=== PATIENT | female | born 1955 | race Caucasian/White ===

== ENCOUNTER → 2018-06-15 18:24 | Outpatient (CLI) | payer OTHER, SELFPAY ==
--- NOTE | 2018-06-15 18:29 | DI.RAD.S_ITS ---
PROCEDURE: XR WRIST LT MIN 3V INDICATIONS: fall on outstretched hand 3 days ago TECHNIQUE: 4 views of the wrist were acquired. COMPARISON: None. FINDINGS: Bones: No fractures or dislocations. No suspicious bony lesions. Scaphoid view: The scaphoid is intact. Soft tissues: No suspicious soft tissue calcifications. IMPRESSION: No acute radiographic findings. If pain persists, repeat study in 5-7 days is recommended to exclude occult fracture. Dictated by: Fabby Bolanos M.D. on 06/15/2018 at 18:56 Approved by: Fabby Bolanos M.D. on 06/15/2018 at 18:56
--- NOTE | 2018-06-15 18:29 | DI.RAD.S_ITS ---
PROCEDURE: XR FOREARM RT 2V INDICATIONS: fall on outstretched hand 3 days ago TECHNIQUE: 2 views of the forearm were acquired. COMPARISON: [facility], CR, XR WRIST LT MIN 3V, 06/15/2018, 18:08. FINDINGS: Bones: No fractures or dislocations. No suspicious bony lesions. Soft tissues: No suspicious soft tissue calcifications or masses. IMPRESSION: No acute radiographic findings. If pain persists, repeat study in 5-7 days is recommended to exclude occult fracture. Dictated by: Fabby Bolanos M.D. on 06/15/2018 at 18:55 Approved by: Fabby Bloanos M.D. on 06/15/2018 at 18:55
== END ==
PROVIDERS: Visit Provider Physician Assistant
DX: M79.602 Pain in left arm (principal)
CPT/HCPCS: 73090; 73110

== ENCOUNTER → 2018-06-22 12:07 | Outpatient (CLI) | payer OTHER, SELFPAY ==
--- NOTE | 2018-06-22 | DI.RAD.S_ITS ---
PROCEDURE: XR FOREARM RT 2V INDICATIONS: LEFT WRIST/FOREARM/ELBOW PAIN TECHNIQUE: 2 views of the forearm were acquired. COMPARISON: [facility], CR, XR FOREARM LT 2V, 06/15/2018, 18:08. FINDINGS: Bones: No fractures or dislocations. No suspicious bony lesions. Soft tissues: No suspicious soft tissue calcifications or masses. IMPRESSION: Unremarkable radiographic examination of left forearm. Dictated by: Song Pandey M.D. on 06/22/2018 at 12:43 Approved by: Song Pandey M.D. on 06/22/2018 at 12:45
--- NOTE | 2018-06-22 | DI.RAD.S_ITS ---
PROCEDURE: XR WRIST LT MIN 3V INDICATIONS: LEFT WRIST/FOREARM/ELBOW PAIN TECHNIQUE: 4 views of the left wrist were acquired. COMPARISON: [facility], [place], XR WRIST LT MIN 3V, 06/15/2018, 18:08. FINDINGS: Bones: No fractures or dislocations. No suspicious bony lesions. Scaphoid view: Scaphoid is intact. Soft tissues: No suspicious soft tissue calcifications. IMPRESSION: Unremarkable radiographic examination of left wrist. No significant changes from previous study. Dictated by: Song Pandey M.D. on 06/22/2018 12:42 Approved by: Song Pandey M.D. on 06/22/2018 at 12:43
== END ==
PROVIDERS: Visit Provider Physician Assistant
DX: M79.632 Pain in left forearm (principal); M25.532 Pain in left wrist; M25.522 Pain in left elbow
CPT/HCPCS: 73090; 73110

== ENCOUNTER 2020-07-31 13:56 | Observation (INO) | payer OTHER, SELFPAY ==
[2020-07-31 13:57] VITALS: BP 94/53; PULSE 55; RESP 18; TEMP 36.4; O2SAT 99
--- NOTE | 2020-07-31 13:59 | DI.RAD.S_ITS ---
PROCEDURE: XR RIBS RT MIN 3V W CXR 1V INDICATIONS: fall, pain post. right chest. TECHNIQUE: 2 views of the right ribs were acquired, along with a single view chest. COMPARISON: None. FINDINGS: Surgical changes and devices: None. Bones and chest wall: Subacute appearing fractures involving right lateral 5th, 6, 7th and 8th ribs are seen with callus formation at fracture site. No suspicious bony lesions. Overlying soft tissues appear unremarkable. Lungs and pleura: No pleural effusions or pneumothorax. Ill-defined opacity in periphery of right mid to lower lung field is seen suggestive of right lung contusion. Mediastinum: Mediastinal contours appear normal. Heart size is normal. IMPRESSION: Subacute appearing right posterior lateral 5th through 8th rib fractures with adjacent right lung lower lung lobe contusion. No pneumothorax. No pleural effusion. Dictated by: Song Pandey M.D. on 07/31/2020 at 15:52 Approved by: Song Pandey M.D. on 07/31/2020 at 16:01
[2020-07-31] MEDS: ONDANSETRON 4 MG ODT SL (14:24)
[2020-07-31] MEDS: ACETAMINOPHEN 325 MG TABLET PO (14:25)
[2020-07-31] MEDS: LIDOCAINE PATCH 1 EACH ADH..PATCH TOP (14:25)
[2020-07-31] MEDS: OXYCODONE/ACETAMINOPHEN 5/325 TABLET 1 TAB PO (14:25)
--- NOTE | 2020-07-31 14:28 | DI.CT.S_ITS ---
PROCEDURE: CT CERVICAL SPINE WO CON INDICATIONS: tripped and fell back wards, snapped back c spine TECHNIQUE: Noncontrast 3 mm thick sections acquired from the skull base to the T4 level. Sagittal and coronal reformats were then constructed. For radiation dose reduction, the following was used: automated exposure control, adjustment of mA and/or kV according to patient size. COMPARISON: None. FINDINGS: Image quality: Excellent. Bones: No fractures or dislocations. Visualized superior ribs are intact. Straightening of the usual cervical lordosis , likely degenerative, with otherwise normal alignment. Multilevel degenerative changes are present from C2-C3 through C6-C7. Soft tissues: Prevertebral soft tissues are normal in thickness. No paravertebral hematomas. No apical pneumothoraces. IMPRESSION: No CT evidence of acute traumatic cervical spine injury. Approved by: Bienvenido Jimenez M.D. on 07/31/2020 at 14:52
--- NOTE | 2020-07-31 15:04 | ED_ITS ---
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 Patient reports she was standing from a stationary stool and took a step backwards and accidentally tripped on a shoes/tangled on the other leg and lost footing. She struck to right-side of back on a wall and felt his neck snapped backwards. Patient denies losing consciousness, or taking anticoagulant, nausea or vomiting, tingling/numbness to upper extremities, headache, or vision change. Patient reports severe 8/10 pain in right-side of back and lateral thoracic region. Patient denies chest pain, short of breath but has difficult time taking a deep breath due to pain. Patient reports difficulty moving right arm due to pain on the right-sided back and lateral chest. Patient reports she is nauseated from the pain. Patient denies other injuries and denies pain in her hips, knees, ankle or foot. Related Data Home Medications Medication Instructions Recorded Confirmed bupropion HCl 300 mg PO DAILY 07/31/20 07/31/20 buspirone 15 mg PO BID 07/31/20 07/31/20 levothyroxine 150 mcg PO DAILY 07/31/20 07/31/20 multivitamin 1 tab PO DAILY 07/31/20 07/31/20 sertraline 150 mg PO DAILY 07/31/20 07/31/20 sumatriptan succinate [Imitrex] 100 mg PO Q2-4H PRN 07/31/20 07/31/20 Previous Rx's Medication Instructions Recorded docusate sodium 100 mg PO BID #60 cap 08/01/20 oxycodone 10 mg PO Q6H PRN #30 tab 08/01/20 Allergies Allergy/AdvReac Type Severity Reaction Status Date / Time No Known Drug Allergies Allergy Verified 07/31/20 13:59 Review of Systems <TRINO Abbott Last Filed: 07/31/20 23:17> Review of Systems Narrative: General: Denies fever, chills, fatigue, malaise, sweats. HEENT: Denies sinus pain, ear pain, sore throat, difficulty swallowing, dizziness. Respiratory: Denies dyspnea, cough, wheezing, hemoptysis, sputum, (+) hurts to take deep breaths.. Cardiovascular: Denies chest pain, palpitations, orthopnea, edema. Gastrointestinal: Denies (+) nausea, vomiting, abdominal pain, diarrhea, constipation, melena. : Denies dysuria, frequency, incontinence, hematuria, urinary retention. Musculoskeletal: See HPI Skin: Denies rash, skin lesions, or other. Neurologic: Denies weakness, headache, numbness, change in speech, confusion, seizures, incoordination. Psychiatric: No concerning psychosocial issues. 12-point review of systems is negative except for those stated above. Patient History <TRINO Abbott - Last Filed: 07/31/20 23:17> Medical History (Updated 08/01/20 @ 04:20 by Farhana Rogers RN) Anxiety (Acute) Breast cancer (Acute) Depression (Acute) Hypothyroidism (Acute) Sleep apnea (Acute) Surgical History History of laminectomy (Acute) Social History household members: spouse Smoking Status: Never smoker alcohol intake: current Smoking Status: Never smoker alcohol intake frequency: 0-2 drinks per day Substance Use Type: does not use Exam <TRINO Abbott - Last Filed: 07/31/20 23:17> Narrative Exam Narrative: GEN: Alert, oriented x 3, well appearing and nourished, and in moderate distress from pain. Prefers to remaining on left recumbent position due to pain on right side of ribs and back. Head: Normal cephalic, atraumatic. No scalp or temporal tenderness, palpable mass or rash. EYES: Pupils are equal, round, and reactive to light and accommodation. Extraocular muscles are intact bilaterally. There is no subconjunctival hemorrhage, exudate and sclera non-icteric. ENT: Hearing grossly intact. Nose without bleeding, purulent discharge or deviation. Mucous membrane moist, no mucosal lesion. Throat without erythema, tonsillar hypertrophy or exudate. Uvula in midline, airway patent. Neck: Trachea in midline. No JVD, non-tender without lymphadenopathy. No masses or thyroid megaly. Supple, no mid cervical tenderness to palpate or step-offs and no meningeal signs. CARDIAC: Normal regular rate and rhythm without murmurs, gallops, or rubs. No chest wall tenderness. No peripheral edema, cyanosis or pallor. Capillary refill is less than 2 seconds. RESPIRATORY: Lungs are clear to auscultate bilaterally but decreased on right- sided lobes. No cough, wheezes, rales, or rhonchi. No stridor, respiratory distress, increase work of breathing, or accessary muscle used. ABD: Abdomen soft, nontender and non-distended. No guarding or rebound tenderness to palpate. Bowel sounds are normal in all 4 quadrants. There is no palpable masses or organomegaly. EXT: Full painless ROM of all extremities with no loss of sensation, strength, effusion or edema. SKIN: Warm, dry, normal color for patient. No erythema, lesions or rash over visible areas. BACK: Exquisite tenderness to palpate in right-sided back and lateral ribs without deformity or crepitance. No flank tenderness. NEUROLOGICAL: Alert and oriented to place, time and person. Sensation and motor function intact bilaterally. No facial droops, dysphasia. PSYCHIATRIC: Good judgement and reason, without hallucinations, abnormal affect or abnormal behaviors during the examination. Patient is not suicidal. Initial Vital Signs Initial Vital Signs: Vital Signs Temperature 97.6 F 07/31/20 13:57 Pulse Rate 55 L 07/31/20 13:57 Respiratory Rate 18 07/31/20 13:57 Blood Pressure 94/53 L 07/31/20 13:57 Pulse Oximetry 99 07/31/20 13:57 <Paula Smith MD - Last Filed: 08/01/20 18:32> Initial Vital Signs Initial Vital Signs: Vital Signs Temperature 97.6 F 07/31/20 13:57 Pulse Rate 55 L 07/31/20 13:57 Respiratory Rate 18 07/31/20 13:57 Blood Pressure 94/53 L 07/31/20 13:57 Pulse Oximetry 99 07/31/20 13:57 Scores <TRINO Abbott - Last Filed: 07/31/20 23:17> GCS [place] coma scale eye opening: Spontaneous [place] coma scale verbal response: Orientated [place] coma scale motor response: Obey commands [place] coma scale total score: 15 Course <Rocky TonyTRINO Yanes - Last Filed: 07/31/20 23:17> Orders Ordered: Discontinued Medications Acetaminophen (Tylenol) 325 mg PO NOW ONE Stop: 07/31/20 14:07 Last Admin: 07/31/20 14:25 Dose: 325 mg Documented by: LAZARO Acetaminophen (Tylenol) 650 mg PO Q6HR PRN PRN Reason: Fever/Mild Pain (1-3) Bupropion HCl (Wellbutrin Xl) 300 mg PO DAILY [facility] Last Admin: 08/01/20 09:28 Dose: 300 mg Documented by: JOSE Buspirone HCl (Buspar) 15 mg PO BID [facility] Last Admin: 08/01/20 09:33 Dose: 15 mg Documented by: JOSE Docusate Sodium (Colace) 100 mg PO BID [facility] Last Admin: 08/01/20 09:28 Dose: 100 mg Documented by: JOSE Enoxaparin Sodium (Lovenox) 40 mg SUBCUT DAILY [facility] Last Admin: 08/01/20 09:28 Dose: 40 mg Documented by: JOSE Sodium Chloride (Normal Saline 0.9%) 1,000 mls @ 150 mls/hr IV CONT [facility] Last Infusion: 07/31/20 19:23 Dose: 0 mls/hr Documented by: Admin: 07/31/20 17:16 Dose: 150 mls/hr Documented by: LAZARO Ketorolac Tromethamine (Toradol) 15 mg IV Q6H PRN PRN Reason: Pain, Moderate (4-6) Stop: 08/05/20 18:56 Last Admin: 08/01/20 10:49 Dose: 15 mg Documented by: Admin: 08/01/20 04:25 Dose: 15 mg Documented by: STEVE Levothyroxine Sodium (Synthroid) 150 mcg PO 0600 [facility] Last Admin: 08/01/20 05:37 Dose: 150 mcg Documented by: STEVE Lidocaine (Lidoderm) 1 each TOP NOW ONE Stop: 07/31/20 14:07 Last Admin: 07/31/20 14:25 Dose: 1 each Documented by: LAZARO Lidocaine (Lidoderm) 1 each TOP DAILY [facility] Last Admin: 08/01/20 09:29 Dose: 1 each Documented by: JOSE Morphine Sulfate (Morphine) 2 mg IV Q5MIN PRN PRN Reason: Chest Pain Last Admin: 07/31/20 17:16 Dose: 2 mg Documented by: LAZARO Morphine Sulfate (Morphine) 4 mg IV NOW ONE Stop: 07/31/20 18:39 Last Admin: 07/31/20 18:43 Dose: 4 mg Documented by: LAZARO Morphine Sulfate (Morphine) 4 mg IV Q4HR PRN PRN Reason: Breakthrough Pain Last Admin: 07/31/20 20:00 Dose: 4 mg Documented by: KAYLEY Multivitamins (Tab-A-Zoë) 1 tab PO DAILY [facility] Last Admin: 08/01/20 09:29 Dose: 1 tab Documented by: JOSE Ondansetron HCl (Zofran Odt) 4 mg SL NOW ONE Stop: 07/31/20 14:06 Last Admin: 07/31/20 14:24 Dose: 4 mg Documented by: LAZARO Ondansetron HCl (Zofran) 4 mg IV Q4HR PRN PRN Reason: Nausea And Vomiting Oxycodone HCl (Percolone) 5 mg PO Q4HR PRN PRN Reason: Pain, Moderate (4-6) Oxycodone HCl (Percolone) 10 mg PO Q4HR PRN PRN Reason: Pain, Severe (7-10) Last Admin: 08/01/20 09:35 Dose: 10 mg Documented by: Admin: 08/01/20 00:45 Dose: 10 mg Documented by: Admin: 07/31/20 20:35 Dose: 10 mg Documented by: KAYLEY Oxycodone/Acetaminophen (Percocet 5/325) 1 tab PO NOW ONE Stop: 07/31/20 14:06 Last Admin: 07/31/20 14:25 Dose: 1 tab Documented by: LAZARO Sertraline HCl (Zoloft) 150 mg PO DAILY [facility] Last Admin: 08/01/20 09:29 Dose: 150 mg Documented by: JOSE Sodium Chloride (Normal Saline 0.9% Flush) 10 ml IV BID [facility] Last Admin: 08/01/20 09:32 Dose: 10 ml Documented by: JOSE Sodium Chloride (Normal Saline 0.9% Flush) 10 ml IV PRN PRN PRN Reason: Flush Sumatriptan Succinate (Imitrex) 100 mg PO Q2H PRN PRN Reason: Migraine Headache Reevaluation(s) Reevaluation #1: Reports pain moderate improved and she is able to resting so in supine position. Waiting for imaging tests. Time: 15:04 Vital Signs Vital signs: Vital Signs - 8 hr 07/31/20 16:14 Pulse Rate 56 L Respiratory Rate 14 Blood Pressure 127/64 Pulse Oximetry 98 <Paula Smith MD - Last Filed: 08/01/20 18:32> Orders Ordered: Discontinued Medications Acetaminophen (Tylenol) 325 mg PO NOW ONE Stop: 07/31/20 14:07 Last Admin: 07/31/20 14:25 Dose: 325 mg Documented by: LAZARO Acetaminophen (Tylenol) 650 mg PO Q6HR PRN PRN Reason: Fever/Mild Pain (1-3) Bupropion HCl (Wellbutrin Xl) 300 mg PO DAILY [facility] Last Admin: 08/01/20 09:28 Dose: 300 mg Documented by: JOSE Buspirone HCl (Buspar) 15 mg PO BID [facility] Last Admin: 08/01/20 09:33 Dose: 15 mg Documented by: JOSE Docusate Sodium (Colace) 100 mg PO BID [facility] Last Admin: 08/01/20 09:28 Dose: 100 mg Documented by: JOSE Enoxaparin Sodium (Lovenox) 40 mg SUBCUT DAILY [facility] Last Admin: 08/01/20 09:28 Dose: 40 mg Documented by: JOSE Sodium Chloride (Normal Saline 0.9%) 1,000 mls @ 150 mls/hr IV CONT [facility] Last Infusion: 07/31/20 19:23 Dose: 0 mls/hr Documented by: Admin: 07/31/20 17:16 Dose: 150 mls/hr Documented by: LAZARO Ketorolac Tromethamine (Toradol) 15 mg IV Q6H PRN PRN Reason: Pain, Moderate (4-6) Stop: 08/05/20 18:56 Last Admin: 08/01/20 10:49 Dose: 15 mg Documented by: Admin: 08/01/20 04:25 Dose: 15 mg Documented by: STEVE Levothyroxine Sodium (Synthroid) 150 mcg PO 0600 [facility] Last Admin: 08/01/20 05:37 Dose: 150 mcg Documented by: STEVE Lidocaine (Lidoderm) 1 each TOP NOW ONE Stop: 07/31/20 14:07 Last Admin: 07/31/20 14:25 Dose: 1 each Documented by: LAZARO Lidocaine (Lidoderm) 1 each TOP DAILY [facility] Last Admin: 08/01/20 09:29 Dose: 1 each Documented by: JOSE Morphine Sulfate (Morphine) 2 mg IV Q5MIN PRN PRN Reason: Chest Pain Last Admin: 07/31/20 17:16 Dose: 2 mg Documented by: LAZARO Morphine Sulfate (Morphine) 4 mg IV NOW ONE Stop: 07/31/20 18:39 Last Admin: 07/31/20 18:43 Dose: 4 mg Documented by: LAZARO Morphine Sulfate (Morphine) 4 mg IV Q4HR PRN PRN Reason: Breakthrough Pain Last Admin: 07/31/20 20:00 Dose: 4 mg Documented by: KAYLEY Multivitamins (Tab-A-Zoë) 1 tab PO DAILY [facility] Last Admin: 08/01/20 09:29 Dose: 1 tab Documented by: JOSE Ondansetron HCl (Zofran Odt) 4 mg SL NOW ONE Stop: 07/31/20 14:06 Last Admin: 07/31/20 14:24 Dose: 4 mg Documented by: LAZARO Ondansetron HCl (Zofran) 4 mg IV Q4HR PRN PRN Reason: Nausea And Vomiting Oxycodone HCl (Percolone) 5 mg PO Q4HR PRN PRN Reason: Pain, Moderate (4-6) Oxycodone HCl (Percolone) 10 mg PO Q4HR PRN PRN Reason: Pain, Severe (7-10) Last Admin: 08/01/20 09:35 Dose: 10 mg Documented by: Admin: 08/01/20 00:45 Dose: 10 mg Documented by: Admin: 07/31/20 20:35 Dose: 10 mg Documented by: KAYLEY Oxycodone/Acetaminophen (Percocet 5/325) 1 tab PO NOW ONE Stop: 07/31/20 14:06 Last Admin: 07/31/20 14:25 Dose: 1 tab Documented by: LAZARO Sertraline HCl (Zoloft) 150 mg PO DAILY [facility] Last Admin: 08/01/20 09:29 Dose: 150 mg Documented by: JOSE Sodium Chloride (Normal Saline 0.9% Flush) 10 ml IV BID [facility] Last Admin: 08/01/20 09:32 Dose: 10 ml Documented by: JOSE Sodium Chloride (Normal Saline 0.9% Flush) 10 ml IV PRN PRN PRN Reason: Flush Sumatriptan Succinate (Imitrex) 100 mg PO Q2H PRN PRN Reason: Migraine Headache Vital Signs Vital signs: Vital Signs - 8 hr 07/31/20 16:14 Pulse Rate 56 L Respiratory Rate 14 Blood Pressure 127/64 Pulse Oximetry 98 MDM - Fall <Rocky [facility] - Last Filed: 07/31/20 23:17> Differential Diagnosis Differential diagnosis: Likely other (C-spine strain, C-spine fracture, rib fracture, rib contusion) Medical Records Attestation: I reviewed the patient's medical records. Lab Data Attestation: I reviewed the patient's lab results. Result diagrams: 07/31/20 17:11 07/31/20 17:11 Labs: Lab Results 07/31/20 07/31/20 07/31/20 Range/Units 17:11 17:11 17:11 WBC 12.2 H (4.5-11.0) X10^3/uL RBC 4.07 (4.0-5.2) X10^6/uL Hgb 12.5 (12.0-16.0) g/dL Hct 38.0 (36-46) % MCV 93.2 (80-100) fL MCH 30.7 (26-34) PG MCHC 33.0 (30-36) % RDW 12.7 (11.6-14.8) % Plt Count 283 (150-400) X10^3/uL Neut % (Auto) 82.1 H (50-75) % Lymph % (Auto) 12.0 L (25-40) % [place] % (Auto) 5.2 (3-14) % Eos % (Auto) 0.5 L (2-4) % Baso % (Auto) 0.2 (0-2) % Neut # (Auto) 60737 H (1864-4300) /uL Lymph # (Auto) 1500 (3789-1145) /uL [place] # (Auto) 600 (0-900) /uL Eos # (Auto) 100 (0-450) /uL Baso # (Auto) 0 (0-100) /uL PT 11.5 (10.1-12.7) SECONDS INR 1.0 (0.9-1.3) Sodium 139 (137-145) mmol/L Potassium 4.1 (3.4-5.1) mmol/L Chloride 100 (98-107) mmol/L Carbon Dioxide 31 (22-32) mmol/L BUN 14 (7-17) mg/dL Creatinine 0.74 (0.52-1.04) mg/dL Estimated GFR > 60.0 (>60) mL/min BUN/Creatinine Ratio 18.9 (6-22) Glucose 94 (80-110) mg/dL Calcium 9.2 (8.4-10.2) mg/dL Total Bilirubin 0.6 (0.2-1.3) mg/dL AST 38 H (14-36) IU/L ALT 26 (<35) IU/L Alkaline Phosphatase 130 H (38-126) U/L Total Protein 7.8 (6.3-8.2) g/dL Albumin 4.3 (3.5-5.0) g/dL Globulin 3.5 (1.7-4.1) g/dL Albumin/Globulin Ratio 1.2 (1.0-2.8) COVID-19 PCR (Negative) 07/31/20 Range/Units 18:47 WBC (4.5-11.0) X10^3/uL RBC (4.0-5.2) X10^6/uL Hgb (12.0-16.0) g/dL Hct (36-46) % MCV (80-100) fL MCH (26-34) PG MCHC (30-36) % RDW (11.6-14.8) % Plt Count (150-400) X10^3/uL Neut % (Auto) (50-75) % Lymph % (Auto) (25-40) % [place] % (Auto) (3-14) % Eos % (Auto) (2-4) % Baso % (Auto) (0-2) % Neut # (Auto) (5404-1185) /uL Lymph # (Auto) (9436-4880) /uL [place] # (Auto) (0-900) /uL Eos # (Auto) (0-450) /uL Baso # (Auto) (0-100) /uL PT (10.1-12.7) SECONDS INR (0.9-1.3) Sodium (137-145) mmol/L Potassium (3.4-5.1) mmol/L Chloride (98-107) mmol/L Carbon Dioxide (22-32) mmol/L BUN (7-17) mg/dL Creatinine (0.52-1.04) mg/dL Estimated GFR (>60) mL/min BUN/Creatinine Ratio (6-22) Glucose (80-110) mg/dL Calcium (8.4-10.2) mg/dL Total Bilirubin (0.2-1.3) mg/dL AST (14-36) IU/L ALT (<35) IU/L Alkaline Phosphatase (38-126) U/L Total Protein (6.3-8.2) g/dL Albumin (3.5-5.0) g/dL Globulin (1.7-4.1) g/dL Albumin/Globulin Ratio (1.0-2.8) COVID-19 PCR Negative (Negative) Imaging Data XR-Rib/chest: Radiologist's Impression: [address] [address] XRay Report Signed Patient: Mirella Starr#: [id number] : 4Acct:[id number] Age/Sex: 64 / FDate of Service: 07/31/20 Loc: ED Accession Number: [id number] Procedure: XR ribs RT min 3V w CXR1V Ordering Provider: Paula Smith MD PROCEDURE: XR RIBS RT MIN 3V W CXR 1V INDICATIONS: fall, pain post. right chest. TECHNIQUE: 2 views of the right ribs were acquired, along with a single view chest. COMPARISON: None. FINDINGS: Surgical changes and devices: None. Bones and chest wall: Subacute appearing fractures involving right lateral 5th, 6, 7th and 8th ribs are seen with callus formation at fracture site. No suspicious bony lesions. Overlying soft tissues appear unremarkable. Lungs and pleura: No pleural effusions or pneumothorax. Ill-defined opacity in periphery of right mid to lower lung field is seen suggestive of right lung contusion. Mediastinum: Mediastinal contours appear normal. Heart size is normal. IMPRESSION: Subacute appearing right posterior lateral 5th through 8th rib fractures with adjacent right lung lower lung lobe contusion. No pneumothorax. No pleural effusion. Dictated by: Song Pandey M.D. on 07/31/2020 at 15:52 Approved by: Song Pandey M.D. on 07/31/2020 at 16:01 CT-C spine: Radiologist's Impression: [place] [address] CT Scan Report Signed Patient: Mirella Starr#: [id number] : 1955cct:[id number] Age/Sex: 64 / FDate of Service: 07/31/20 Loc: ED Accession Number: [id number] Procedure: CT cervical spine wo con Ordering Provider: Rocky Tiwari PROCEDURE: CT CERVICAL SPINE WO CON INDICATIONS: tripped and fell back wards, snapped back c spine TECHNIQUE: Noncontrast 3 mm thick sections acquired from the skull base to the T4 level. Sagittal and coronal reformats were then constructed. For radiation dose reduction, the following was used: automated exposure control, adjustment of mA and/or kV according to patient size. COMPARISON: None. FINDINGS: Image quality: Excellent. Bones: No fractures or dislocations. Visualized superior ribs are intact. Straightening of the usual cervical lordosis , likely degenerative, with otherwise normal alignment. Multilevel degenerative changes are present from C2-C3 through C6- C7. Soft tissues: Prevertebral soft tissues are normal in thickness. No paravertebral hematomas. No apical pneumothoraces. IMPRESSION: No CT evidence of acute traumatic cervical spine injury. Approved by: Bienvenido Jimenez M.D. on 07/31/2020 at 14:52 CT-Chest: Radiologist's Impression: [address] [address] [address] Scan Report Signed Patient: Aron Starr#: [id number] : 1955cct:[id number] Age/Sex: 64 / FDate of Service: 07/31/20 Loc: ED Accession Number: [id number] Procedure: CT chest w con Ordering Provider: Rocky Tiwari PROCEDURE: CT CHEST W CON INDICATIONS: chest trauma, rib fractures per xray TECHNIQUE: After the administration of intravenous contrast, 5 mm thick sections acquired from the pulmonary apices to the posterior costophrenic angles. 1 mm axial lung, 5 mm thick coronal and sagittal reformats and 7 mm axial MIP were acquired. For radiation dose reduction, the following was used: automated exposure control, adjustment of mA and/or kV according to patient size. COMPARISON: [facility], CR, XR RIBS RT MIN 3V W CXR 1V, 07/31/2020, 14:37. FINDINGS: Image quality: Excellent. Lungs and pleura: No acute air space opacities. No pleural effusions or pneumothorax. Central and peripheral airways are patent and normal in caliber. There is left mastectomy. Mediastinum: Heart size is normal. No pericardial effusion. No mediastinal or hilar adenopathy by size criteria. Thoracic aorta and central pulmonary arteries are normal in size. Esophagus is normal in caliber. No hiatal hernia. Bones and chest wall: There are multiple non-acute healing right rib fractures involving the lateral aspect of the right 4th, 5th, 6th and 7th ribs. No suspicious bony lesions. No vertebral body compression fractures. No axillary or supraclavicular adenopathy by size criteria. Thyroid gland is small but otherwise unremarkable. Abdomen: There are multiple gallstones. Visualized upper abdominal solid organs appear normal. Upper abdominal bowel loops are normal in caliber. IMPRESSION: 1. Nonacute healing right 4th, 5th, 6th and 7th rib fractures. 2. No hemothorax or pneumothorax. 3. Left mastectomy. 4. Cholelithiasis. Dictated by: Margarita Yeager M.D. on 07/31/2020 at 18:06 Approved by: Margarita Yeager M.D. 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 No focal neurological deficit appreciated. Patient reports her neck left backwards during the fall. No loss of consciousness from this. Patient is not currently on anticoagulant. C-spine CT test was negative for acute findings but multilevel degenerative changes in C2-C3 through C6-C7. Rib xray shows multiple rib fracture involving right lateral ribs and concerns for right lung contution in adjacent area. Patient was not able to take deep breaths due to discomfort. No increased work of breathing with O2 said averaging 96% in room air. Lung sounds are decreased in right-side to auscultate. Patient was medicated with lidocaine patch, PO analgesics initially with some relief but soon after this was not effective. It required IV medication to manage pain with morphine. CT chest was added for further testing with concerns for multiple rib fracture and chest contusion. EKG with sinus bradycardia rate at [address] CT showed multiple right rib fracture involving the lateral aspect of 4th through 7th ribs. There is no vertebral body compression fracture appreciated. There is no pericardial effusion, pneumothorax or hemothorax. Incidental finding of multiple gallstones. I/S teaching requested to prevent atelectasis or pneumonia. CBC with mild leukocytosis with slight elevation in neutrophil of 82.1%. Chemistry test with very mildly elevated AST of 38 with alkaline phos of 130. Normal coag test. Negative Covid test. Discussed study findings and physical exam and concerns with patient and she verbalized understanding with the treatment plan of admission for pain management and further monitoring. 184-Dr Ocampo consulted for admission for observation for pain management and monitor for chest contusion and decompensation and she kindly accepted the patient's care. <Paula Smith MD - Last Filed: 08/01/20 18:32> Lab Data Labs: Lab Results 07/31/20 07/31/20 07/31/20 Range/Units 17:11 17:11 17:11 WBC 12.2 H (4.5-11.0) X10^3/uL RBC 4.07 (4.0-5.2) X10^6/uL Hgb 12.5 (12.0-16.0) g/dL Hct 38.0 (36-46) % MCV 93.2 (80-100) fL MCH 30.7 (26-34) PG MCHC 33.0 (30-36) % RDW 12.7 (11.6-14.8) % Plt Count 283 (150-400) X10^3/uL Neut % (Auto) 82.1 H (50-75) % Lymph % (Auto) 12.0 L (25-40) % [place] % (Auto) 5.2 (3-14) % Eos % (Auto) 0.5 L (2-4) % Baso % (Auto) 0.2 (0-2) % Neut # (Auto) 72680 H (7502-6660) /uL Lymph # (Auto) 1500 (4334-5347) /uL [place] # (Auto) 600 (0-900) /uL Eos # (Auto) 100 (0-450) /uL Baso # (Auto) 0 (0-100) /uL PT 11.5 (10.1-12.7) SECONDS INR 1.0 (0.9-1.3) Sodium 139 (137-145) mmol/L Potassium 4.1 (3.4-5.1) mmol/L Chloride 100 (98-107) mmol/L Carbon Dioxide 31 (22-32) mmol/L BUN 14 (7-17) mg/dL Creatinine 0.74 (0.52-1.04) mg/dL Estimated GFR > 60.0 (>60) mL/min BUN/Creatinine Ratio 18.9 (6-22) Glucose 94 (80-110) mg/dL Calcium 9.2 (8.4-10.2) mg/dL Total Bilirubin 0.6 (0.2-1.3) mg/dL AST 38 H (14-36) IU/L ALT 26 (<35) IU/L Alkaline Phosphatase 130 H (38-126) U/L Total Protein 7.8 (6.3-8.2) g/dL Albumin 4.3 (3.5-5.0) g/dL Globulin 3.5 (1.7-4.1) g/dL Albumin/Globulin Ratio 1.2 (1.0-2.8) COVID-19 PCR (Negative) 07/31/20 Range/Units 18:47 WBC (4.5-11.0) X10^3/uL RBC (4.0-5.2) X10^6/uL Hgb (12.0-16.0) g/dL Hct (36-46) % MCV (80-100) fL MCH (26-34) PG MCHC (30-36) % RDW (11.6-14.8) % Plt Count (150-400) X10^3/uL Neut % (Auto) (50-75) % Lymph % (Auto) (25-40) % [place] % (Auto) (3-14) % Eos % (Auto) (2-4) % Baso % (Auto) (0-2) % Neut # (Auto) (7427-4008) /uL Lymph # (Auto) (8494-1770) /uL [place] # (Auto) (0-900) /uL Eos # (Auto) (0-450) /uL Baso # (Auto) (0-100) /uL PT (10.1-12.7) SECONDS INR (0.9-1.3) Sodium (137-145) mmol/L Potassium (3.4-5.1) mmol/L Chloride (98-107) mmol/L Carbon Dioxide (22-32) mmol/L BUN (7-17) mg/dL Creatinine (0.52-1.04) mg/dL Estimated GFR (>60) mL/min BUN/Creatinine Ratio (6-22) Glucose (80-110) mg/dL Calcium (8.4-10.2) mg/dL Total Bilirubin (0.2-1.3) mg/dL AST (14-36) IU/L ALT (<35) IU/L Alkaline Phosphatase (38-126) U/L Total Protein (6.3-8.2) g/dL Albumin (3.5-5.0) g/dL Globulin (1.7-4.1) g/dL Albumin/Globulin Ratio (1.0-2.8) COVID-19 PCR Negative (Negative) Discharge Plan Departure Patient Disposition: Admitted as Observation Clinical Impression: Closed rib fracture Qualifiers: Encounter type: initial encounter Rib fracture type: multiple ribs Laterality: right Qualified Code(s): S22.41XA - Multiple fractures of ribs, right side, initial encounter for closed fracture Fall Qualifiers: Encounter type: initial encounter Qualified Code(s): W19.XXXA - Unspecified fall, initial encounter Discharge Date/Time: 07/31/20 19:20 Instructions: DI for Rib Fracture, DI for Prescription Opioid Use Referrals: Valentino Lawrence, SCOTT [Emergency Nurse] - Lisa Ricketts MD [Physician] - 1 Week (PLEASE CALL DR. RICKETTS'S OFFICE TO SCHEDULE A FOLLOW UP APPOINTMENT TO BE SEEN IN 1 WK, IF YOU ARE UNABLE TO FOLLOW UP WITH YOUR PRIMARY CARE DOCTOR.) Admit Date/Time: 07/31/20 18:50 Admit Provider: Lisa Ricketts <Paula Smith MD - Last Filed: 08/01/20 18:32> Cosign ED Attending Cosignature Attestation: I was immediately available in the department for consultation throughout this patient's visit. I agree with documentation as above. Paula Smith MD
[2020-07-31 16:14] VITALS: BP 127/64; PULSE 56; RESP 14; O2SAT 98
[2020-07-31] MEDS: MORPHINE 2 MG/ML INJ IV (17:16)
[2020-07-31] MEDS: SODIUM CHLORIDE 0.9% 1,000 ML 150 ML IV (17:16)
[2020-07-31 17:18] LABS: Add Manual Diff / Slide Review NO; Basophils Absolute Auto 0 /uL (0-100); Basophils Percent Auto 0.2 % (0-2); Eosinophils Absolute Auto 100 /uL (0-450); Eosinophils Percent Auto 0.5 % (2-4); Hemoglobin 12.5 g/dL (12.0-16.0); Lymphocytes Absolute Auto 1500 /uL (1100-4500); Mean Corpuscular Hemoglobin 30.7 PG (26-34); Mean Corpuscular Volume 93.2 fL (80-100); Monocytes Absolute Auto 600 /uL (0-900); Monocytes Percent Auto 5.2 % (3-14); Neutrophils Absolute Auto 10000 /uL (1500-7000); Neutrophils Percent Auto 82.1 % (50-75); Platelet Count 283 X10^3/uL (150-400); Red Blood Cell Count 4.07 X10^6/uL (4.0-5.2); Red Cell Distribution Width 12.7 % (11.6-14.8); White Blood Cell Count 12.2 X10^3/uL (4.5-11.0)
[2020-07-31 17:25] LABS: Prothrombin Time 11.5 SECONDS (10.1-12.7)
--- NOTE | 2020-07-31 17:26 | DI.CT.S_ITS ---
PROCEDURE: CT CHEST W CON INDICATIONS: chest trauma, rib fractures per xray TECHNIQUE: After the administration of intravenous contrast, 5 mm thick sections acquired from the pulmonary apices to the posterior costophrenic angles. 1 mm axial lung, 5 mm thick coronal and sagittal reformats and 7 mm axial MIP were acquired. For radiation dose reduction, the following was used: automated exposure control, adjustment of mA and/or kV according to patient size. COMPARISON: [facility], CR, XR RIBS RT MIN 3V W CXR 1V, 07/31/2020, 14:37. FINDINGS: Image quality: Excellent. Lungs and pleura: No acute air space opacities. No pleural effusions or pneumothorax. Central and peripheral airways are patent and normal in caliber. There is left mastectomy. Mediastinum: Heart size is normal. No pericardial effusion. No mediastinal or hilar adenopathy by size criteria. Thoracic aorta and central pulmonary arteries are normal in size. Esophagus is normal in caliber. No hiatal hernia. Bones and chest wall: There are multiple non-acute healing right rib fractures involving the lateral aspect of the right 4th, 5th, 6th and 7th ribs. No suspicious bony lesions. No vertebral body compression fractures. No axillary or supraclavicular adenopathy by size criteria. Thyroid gland is small but otherwise unremarkable. Abdomen: There are multiple gallstones. Visualized upper abdominal solid organs appear normal. Upper abdominal bowel loops are normal in caliber. IMPRESSION: 1. Nonacute healing right 4th, 5th, 6th and 7th rib fractures. 2. No hemothorax or pneumothorax. 3. Left mastectomy. 4. Cholelithiasis. Dictated by: Margarita Yeager M.D. on 07/31/2020 at 18:06 Approved by: Margarita Yeager M.D. on 07/31/2020 at 18:15
[2020-07-31 17:30] LABS: Alanine Aminotransferase 26 IU/L (<35); Albumin 4.3 g/dL (3.5-5.0); Albumin Globulin Ratio 1.2 (1.0-2.8); Alkaline Phosphatase 130 U/L (38-126); Aspartate Aminotransferase 38 IU/L (14-36); BUN Creatinine Ratio 18.9 (6-22); Bilirubin Total 0.6 mg/dL (0.2-1.3); Blood Urea Nitrogen 14 mg/dL (7-17); Calcium 9.2 mg/dL (8.4-10.2); Carbon Dioxide 31 mmol/L (22-32); Chloride 100 mmol/L (98-107); Estimated Glomerular Filt Rate > 60.0 mL/min (>60); Globulin 3.5 g/dL (1.7-4.1); Glucose 94 mg/dL (80-110); HEMOLYSIS 19 (0-50); Potassium 4.1 mmol/L (3.4-5.1); Sodium 139 mmol/L (137-145); Total Protein 7.8 g/dL (6.3-8.2)
[2020-07-31] MEDS: MORPHINE 4 MG/ML INJ IV ×2 (18:43→20:00)
--- NOTE | 2020-07-31 19:00 | P.HP_ITS ---
History of Present Illness History of Present Illness Date Patient Seen: 07/31/20 Time Patient Seen: 19:30 Chief complaint: GLF Narrative: This is a 64 yo woman with history of hypothyroid, multiple laminectomy surgeries, anxiety, depression, and breast cancer. She came into the ER this evening after a mechanical fall at work (she works at [employer]). She was standing up from a stationary stool and took a step backwards and caught her foot and lost her footing. She struck to right-side of her back on a wall and felt her neck snap backwards. She fell to the ground and landed on her buttocks. She denies hitting her head, losing consciousness, any ti ngling/numbness to upper extremities, headache, or vision change. She reports severe 8/10 pain in right-side of her back and lateral thoracic region. She is nauseated from the pain. She denies other injuries, pain in her hips, knees, ankles or feet. She reports some pain in her bottom. She had a CT scan of her chest and neck in the ER. The neck CT revealed no injury. The chest CT and CXR showed four right sided rib fractures and a pulmonary contusion. In the ER the patient was having difficulty taking a deep breath, and pain was not manageable on PO pain meds. Therefore surgery was consulted to admit her for pain management and respiratory care for her rib fractures. ROS: General: Denies fever, chills, fatigue, malaise, sweats. HEENT: Denies sinus pain, ear pain, sore throat, difficulty swallowing, dizziness. Respiratory: Denies dyspnea, cough, wheezing, hemoptysis, sputum, (+) hurts to take deep breaths.. Cardiovascular: Denies chest pain, palpitations, orthopnea, edema. Gastrointestinal: Denies (+) nausea, vomiting, abdominal pain, diarrhea, constipation, melena. : Denies dysuria, frequency, incontinence, hematuria, urinary retention. Musculoskeletal: See HPI Skin: Denies rash, skin lesions, or other. Neurologic: Denies weakness, headache, numbness, change in speech, confusion, seizures, incoordination. Psychiatric: No concerning psychosocial issues. 12-point review of systems is negative except for those stated above. PE: GENERAL: Well groomed and cooperative. Appears stated age. Answers questions promptly and appropriately. Vital signs noted. HENT: Normocephalic, atraumatic. Hearing intact. Oral mucosa is pink and moist. Neck: No TTP over spinous processes; FROM in all directions without pain EYES: Conjunctiva pink, sclera white, no periorbital swelling. CARDIOVASCULAR: Regular rate. No pedal edema. RESPIRATORY: Non-tachypneic, CTAB, equal breath sounds bilaterally; no wheezes; rales, ronchi GASTROINTESTINAL: Abdomen soft and non-distended Back: exquisitely TTP on the right posterior lateral mid to upper back; no visible ecchymoses; no crepitus MUSCULOSKELETAL: Equal tone and mass bilaterally. SKIN: Warm, dry, soft, appropriate color for ethnicity. No other lesions, rashes, or wounds. NEURO: Alert and Oriented X 3. Cranial nerves grossly intact; no gross sensory deficits, or cognitive issues. PSYCH: Appropriate mood and affect, normal intellect Patient History Medical History Anxiety (Acute) Breast cancer (Acute) Depression (Acute) Hypothyroidism (Acute) Surgical History History of laminectomy (Acute) Family & Social History Safety & Behavioral: Feels Safe in Current Yes Environment Been Physically Hurt or No Threatened By a Person Tobacco & Substance use: Smoking Status Never smoker alcohol intake frequency 0-2 drinks per day Substance Use Type does not use Meds Home Medications and Allergies Home Medications Medication Instructions Recorded Confirmed Type bupropion HCl 300 mg PO DAILY 07/31/20 07/31/20 History buspirone 15 mg PO BID 07/31/20 07/31/20 History levothyroxine 150 mcg PO DAILY 07/31/20 07/31/20 History multivitamin 1 tab PO DAILY 07/31/20 07/31/20 History sertraline 150 mg PO DAILY 07/31/20 07/31/20 History sumatriptan succinate [Imitrex] 100 mg PO Q2-4H PRN 07/31/20 07/31/20 History Allergies Allergy/AdvReac Type Severity Reaction Status Date / Time No Known Drug Allergies Allergy Verified 07/31/20 13:59 Exam Vital Signs (past 8 hours): - 07/31/20 13:57 07/31/20 16:14 Temperature 97.6 F Pulse Rate 55 L 56 L Respiratory Rate 18 14 Blood Pressure 94/53 L 127/64 Pulse Oximetry 99 98 Oxygen Delivery Method Room Air Objective Imaging CT scan - chest: Radiologist's impression: [address] [address] XRay Report Signed Patient: Aron Starr#: [id number] : 4Acct:[id number] Age/Sex: 64 / FDate of Service: 07/31/20 Loc: ED Accession Number: [id number] Procedure: XR ribs RT min 3V w CXR1V Ordering Provider: Paula Smith MD PROCEDURE: XR RIBS RT MIN 3V W CXR 1V INDICATIONS: fall, pain post. right chest. TECHNIQUE: 2 views of the right ribs were acquired, along with a single view chest. COMPARISON: None. FINDINGS: Surgical changes and devices: None. Bones and chest wall: Subacute appearing fractures involving right lateral 5th, 6, 7th and 8th ribs are seen with callus formation at fracture site. No suspicious bony lesions. Overlying soft tissues appear unremarkable. Lungs and pleura: No pleural effusions or pneumothorax. Ill-defined opacity in periphery of right mid to lower lung field is seen suggestive of right lung cont usion. Mediastinum: Mediastinal contours appear normal. Heart size is normal. IMPRESSION: Subacute appearing right posterior lateral 5th through 8th rib fractures with adjacent right lung lower lung lobe contusion. No pneumothorax. No pleural effusion. Dictated by: Song Pandey M.D. on 07/31/2020 at 15:52 Approved by: Song Pandey M.D. on 07/31/2020 at 16:[address] [address] [address] Scan Report Signed Patient: Aron Starr#: [id number] : 4Acct:[id number] Age/Sex: 64 / FDate of Service: 07/31/20 Loc: ED Accession Number: [id number] Procedure: CT chest w con Ordering Provider: Rocky Tiwari PROCEDURE: CT CHEST W CON INDICATIONS: chest trauma, rib fractures per xray TECHNIQUE: After the administration of intravenous contrast, 5 mm thick sections acquired from the pulmonary apices to the posterior costophrenic angles. 1 mm axial lung, 5 mm thick coronal and sagittal reformats and 7 mm axial MIP were acquired. For radiation dose reduction, the following was used: automated exposure control, adjustment of mA and/or kV according to patient size. COMPARISON: [facility], CR, XR RIBS RT MIN 3V W CXR 1V, 07/31/2020, 14:37. FINDINGS: Image quality: Excellent. Lungs and pleura: No acute air space opacities. No pleural effusions or pneumothorax. Central and peripheral airways are patent and normal in caliber. There is left mastectomy. Mediastinum: Heart size is normal. No pericardial effusion. No mediastinal or hilar adenopathy by size criteria. Thoracic aorta and central pulmonary arteries are normal in size. Esophagus is normal in caliber. No hiatal hernia. Bones and chest wall: There are multiple non-acute healing right rib fractures involving the lateral aspect of the right 4th, 5th, 6th and 7th ribs. No suspicious bony lesions. No vertebral body compression fractures. No axillary or supraclavicular adenopathy by size criteria. Thyroid gland is small but otherwise unremarkable. Abdomen: There are multiple gallstones. Visualized upper abdominal solid organs appear normal. Upper abdominal bowel loops are normal in caliber. IMPRESSION: 1. Nonacute healing right 4th, 5th, 6th and 7th rib fractures. 2. No hemothorax or pneumothorax. 3. Left mastectomy. 4. Cholelithiasis. Dictated by: Margarita Yeager M.D. on 07/31/2020 at 18:06 Approved by: Margarita Yeager M.D. on 07/31/2020 at 18:15 [place] [address] CT Scan Report Signed Patient: Aron Starr#: [id number] : 4Acct:[id number] Age/Sex: 64 / FDate of Service: 07/31/20 Loc: ED Accession Number: [id number] Procedure: CT cervical spine wo con Ordering Provider: Rocky Tiwari PROCEDURE: CT CERVICAL SPINE WO CON INDICATIONS: tripped and fell back wards, snapped back c spine TECHNIQUE: Noncontrast 3 mm thick sections acquired from the skull base to the T4 level. Sagittal and coronal reformats were then constructed. For radiation dose reduction, the following was used: automated exposure control, adjustment of mA and/or kV according to patient size. COMPARISON: None. FINDINGS: Image quality: Excellent. Bones: No fractures or dislocations. Visualized superior ribs are intact. Straightening of the usual cervical lordosis , likely degenerative, with otherwise normal alignment. Multilevel degenerative changes are present from C2-C3 through C6- C7. Soft tissues: Prevertebral soft tissues are normal in thickness. No paraverte bral hematomas. No apical pneumothoraces. IMPRESSION: No CT evidence of acute traumatic cervical spine injury. Approved by: Bienvenido Jimenez M.D. on 07/31/2020 at 14:52 Labs Result Diagrams: 07/31/20 17:11 07/31/20 17:11 Labs: Laboratory Results - last 24 hr 07/31/20 07/31/20 07/31/20 17:11 17:11 17:11 WBC 12.2 H RBC 4.07 Hgb 12.5 Hct 38.0 MCV 93.2 MCH 30.7 MCHC 33.0 RDW 12.7 Plt Count 283 Neut % (Auto) 82.1 H Lymph % (Auto) 12.0 L [place] % (Auto) 5.2 Eos % (Auto) 0.5 L Baso % (Auto) 0.2 Neut # (Auto) [address] H Lymph # (Auto) 1500 [place] # (Auto) 600 Eos # (Auto) 100 Baso # (Auto) 0 PT 11.5 INR 1.0 Sodium 139 Potassium 4.1 Chloride 100 Carbon Dioxide 31 BUN 14 Creatinine 0.74 Estimated GFR > 60.0 BUN/Creatinine Ratio 18.9 Glucose 94 Calcium 9.2 Total Bilirubin 0.6 AST 38 H ALT 26 Alkaline Phosphatase 130 H Total Protein 7.8 Albumin 4.3 Globulin 3.5 Albumin/Globulin Ratio 1.2 Assessment & Plan Assessment and plan (1) Closed rib fracture: Problem details: This is a 64 yo woman s/p GLF with multiple right sided rib fractures, pulmonary contusion, difficulty deep breathing, and pain not controlled with PO pain meds. She is admitted for pain control, and monitoring for decompensation. Plan: Admit to surgery for management of rib fractures IS O2 as needed monitor O2 sats Ambulate as tolerated PO diet as tolerated pain med anti emetic Qualifiers: Encounter type: initial encounter Laterality: right Rib fracture type: multiple ribs Qualified Code(s): S22.41XA - Multiple fractures of ribs, right side, initial encounter for closed fracture Status: Acute (2) Fall: Qualifiers: Encounter type: initial encounter Qualified Code(s): W19.XXXA - Unspecified fall, initial encounter Status: Acute (3) Painful respiration: Status: Acute (4) Right pulmonary contusion: Status: Acute (5) Fall from ground level: Status: Acute Quality VTE Deep Vein Thrombosis/Pulmonary Embolism Present on Admission: No
[2020-07-31 19:30] VITALS: BP 100/64; PULSE 60; RESP 17; TEMP 37; O2SAT 97
[2020-07-31 19:33] LABS: COVID19 -Nasal RAPID Negative (Negative)
[2020-07-31] MEDS: OXYCODONE IR 10 MG TABLET PO (20:35)
[2020-07-31 20:40] VITALS: BMI 28.5
[2020-08-01] VITALS: BP 113/58; PULSE 60; RESP 16; TEMP 36.4
[2020-08-01] MEDS: OXYCODONE IR 10 MG TABLET PO ×2 (00:45→09:35)
[2020-08-01 04:13] VITALS: O2SAT 94
[2020-08-01] MEDS: KETOROLAC 15 MG/ML VIAL IV ×2 (04:25→10:49)
[2020-08-01 04:28] VITALS: BP 101/56; PULSE 63; RESP 16; TEMP 36.4
[2020-08-01] MEDS: LEVOTHYROXINE 150 MCG TABLET PO (05:37)
[2020-08-01 07:50] VITALS: BP 100/58; PULSE 57; RESP 14; TEMP 36.5; O2SAT 92
--- NOTE | 2020-08-01 08:47 | P.DS_ITS ---
History of Present Illness History of Present Illness Chief complaint: GLF Narrative: This is a 64 yo woman with history of hypothyroid, multiple laminectomy surgeries, anxiety, depression, and breast cancer. 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 She was standing up from a stationary stool and took a step backwards and caught her foot and lost her footing. She struck to right-side of her back on a wall and felt her neck snap backwards. She fell to the ground and landed on her buttocks. She denies hitting her head, losing consciousness, any tin gling/numbness to upper extremities, headache, or vision change. She reports severe 8/10 pain in right-side of her back and lateral thoracic region. She is nauseated from the pain. She denies other injuries, pain in her hips, knees, ankles or feet. She reports some pain in her bottom. She had a CT scan of her chest and neck in the ER. The neck CT revealed no injury. The chest CT and CXR showed four right sided rib fractures and a pulmonary contusion. In the ER the patient was having difficulty taking a deep breath, and pain was not manageable on PO pain meds. Therefore surgery was consulted to admit her for pain management and respiratory care for her rib fractures. ROS: General: Denies fever, chills, fatigue, malaise, sweats. HEENT: Denies sinus pain, ear pain, sore throat, difficulty swallowing, dizziness. Respiratory: Denies dyspnea, cough, wheezing, hemoptysis, sputum, (+) hurts to take deep breaths.. Cardiovascular: Denies chest pain, palpitations, orthopnea, edema. Gastrointestinal: Denies (+) nausea, vomiting, abdominal pain, diarrhea, constipation, melena. : Denies dysuria, frequency, incontinence, hematuria, urinary retention. Musculoskeletal: See HPI Skin: Denies rash, skin lesions, or other. Neurologic: Denies weakness, headache, numbness, change in speech, confusion, seizures, incoordination. Psychiatric: No concerning psychosocial issues. 12-point review of systems is negative except for those stated above. PE: GENERAL: Well groomed and cooperative. Appears stated age. Answers questions promptly and appropriately. Vital signs noted. HENT: Normocephalic, atraumatic. Hearing intact. Oral mucosa is pink and moist. Neck: No TTP over spinous processes; FROM in all directions without pain EYES: Conjunctiva pink, sclera white, no periorbital swelling. CARDIOVASCULAR: Regular rate. No pedal edema. RESPIRATORY: Non-tachypneic, CTAB, equal breath sounds bilaterally; no wheezes; rales, ronchi GASTROINTESTINAL: Abdomen soft and non-distended Back: exquisitely TTP on the right posterior lateral mid to upper back; no visible ecchymoses; no crepitus MUSCULOSKELETAL: Equal tone and mass bilaterally. SKIN: Warm, dry, soft, appropriate color for ethnicity. No other lesions, rashes, or wounds. NEURO: Alert and Oriented X 3. Cranial nerves grossly intact; no gross sensory deficits, or cognitive issues. PSYCH: Appropriate mood and affect, normal intellect Discharge Providers Provider Date of admission: 07/31/20 18:50 Discharge Date: 08/01/20 Discharge provider: Lisa Ricketts MD Summary Hospital Course Discharge Diagnosis: multiple rib fractures, pulmonary contusion Hospital Course: The patient was admitted for pain control and monitoring for respiratory decompensation. Her pain was eventually managed with PO and IV pain med, and converted to PO only pain med at the time of discharge. She maintained her oxygen saturation, and was discharged home with incentive spirometer, Rx for oxycodone 10mg, recommendation for lidocaine patch, tylenol and ibuprofen, and strict return precuations. Status at Discharge Cognitive/behavioral status at discharge: oriented Functional status at discharge: independent ambulation Overall status at discharge: patient is progressing back to baseline Time Spent with Patient Time spent: Greater than 30 minutes Exam Vital Signs (past 8 hours): - 08/01/20 04:13 08/01/20 04:28 08/01/20 07:50 Temperature 97.6 F 97.7 F Pulse Rate 63 57 L Respiratory Rate 16 14 Blood Pressure 101/56 L 100/58 L Pulse Oximetry 94 92 Oxygen Delivery Method Room Air Oxygen Flow Rate 0 Narrative Exam Narrative: GENERAL: Well groomed and cooperative. Appears stated age. Answers questions promptly and appropriately. Vital signs noted. HENT: Normocephalic, atraumatic. Hearing intact. Oral mucosa is pink and moist. Neck: No TTP over spinous processes; FROM in all directions without pain EYES: Conjunctiva pink, sclera white, no periorbital swelling. CARDIOVASCULAR: Regular rate. No pedal edema. RESPIRATORY: Non-tachypneic, CTAB, equal breath sounds bilaterally; no wheezes; rales, ronchi GASTROINTESTINAL: Abdomen soft and non-distended Back: exquisitely TTP on the right posterior lateral mid to upper back; no visible ecchymoses; no crepitus MUSCULOSKELETAL: Equal tone and mass bilaterally. SKIN: Warm, dry, soft, appropriate color for ethnicity. No other lesions, rashes, or wounds. NEURO: Alert and Oriented X 3. Cranial nerves grossly intact; no gross sensory deficits, or cognitive issues. PSYCH: Appropriate mood and affect, normal intellect Objective Imaging CT scan - chest: Radiologist's impression: CT scan - chest: Radiologist's impression: [address] [address] XRay Report Signed Patient: Aron Starr#: [id number] : 4Acct:[id number] Age/Sex: 64 / FDate of Service: 07/31/20 Loc: ED Accession Number: [id number] Procedure: XR ribs RT min 3V w CXR1V Ordering Provider: Paula Smith MD PROCEDURE: XR RIBS RT MIN 3V W CXR 1V INDICATIONS: fall, pain post. right chest. TECHNIQUE: 2 views of the right ribs were acquired, along with a single view chest. COMPARISON: None. FINDINGS: Surgical changes and devices: None. Bones and chest wall: Subacute appearing fractures involving right lateral 5th, 6, 7th and 8th ribs are seen with callus formation at fracture site. No suspicious bony lesions. Overlying soft tissues appear unremarkable. Lungs and pleura: No pleural effusions or pneumothorax. Ill-defined opacity in periphery of right mid to lower lung field is seen suggestive of right lung contusion. Mediastinum: Mediastinal contours appear normal. Heart size is normal. IMPRESSION: Subacute appearing right posterior lateral 5th through 8th rib fractures with adjacent right lung lower lung lobe contusion. No pneumothorax. No pleural effusion. Dictated by: Song Pandey M.D. on 07/31/2020 at 15:52 Approved by: Song Pandey M.D. on 07/31/2020 at 16:[address] [address] [address] Scan Report Signed Patient: Aron Starr#: [id number] : 4Acct:[id number] Age/Sex: 64 / FDate of Service: 07/31/20 Loc: ED Accession Number: [id number] Procedure: CT chest w con Ordering Provider: Rocky Tiwari PROCEDURE: CT CHEST W CON INDICATIONS: chest trauma, rib fractures per xray TECHNIQUE: After the administration of intravenous contrast, 5 mm thick sections acquired from the pulmonary apices to the posterior costophrenic angles. 1 mm axial lung, 5 mm thick coronal and sagittal reformats and 7 mm axial MIP were acquired. For radiation dose reduction, the following was used: automated exposure control, adjustment of mA and/or kV according to patient size. COMPARISON: [facility], CR, XR RIBS RT MIN 3V W CXR 1V, 07/31/2020, 14:37. FINDINGS: Image quality: Excellent. Lungs and pleura: No acute air space opacities. No pleural effusions or pneumothorax. Central and peripheral airways are patent and normal in caliber. There is left mastectomy. Mediastinum: Heart size is normal. No pericardial effusion. No mediastinal or hilar adenopathy by size criteria. Thoracic aorta and central pulmonary arteries are normal in size. Esophagus is normal in caliber. No hiatal hernia. Bones and chest wall: There are multiple non-acute healing right rib fractures involving the lateral aspect of the right 4th, 5th, 6th and 7th ribs. No suspicious bony lesions. No vertebral body compression fractures. No axillary or supraclavicular adenopathy by size criteria. Thyroid gland is small but otherwise unremarkable. Abdomen: There are multiple gallstones. Visualized upper abdominal solid organs appear normal. Upper abdominal bowel loops are normal in caliber. IMPRESSION: 1. Nonacute healing right 4th, 5th, 6th and 7th rib fractures. 2. No hemothorax or pneumothorax. 3. Left mastectomy. 4. Cholelithiasis. Dictated by: Margarita Yeager M.D. on 07/31/2020 at 18:06 Approved by: Margarita Yeager M.D. on 07/31/2020 at 18:[address] [address] [address] Scan Report Signed Patient: Aron Starr#: [id number] : 4Acct:[id number] Age/Sex: 64 / FDate of Service: 07/31/20 Loc: ED Accession Number: [id number] Procedure: CT cervical spine wo con Ordering Provider: Rocky Tiwari PROCEDURE: CT CERVICAL SPINE WO CON INDICATIONS: tripped and fell back wards, snapped back c spine TECHNIQUE: Noncontrast 3 mm thick sections acquired from the skull base to the T4 level. Sagittal and coronal reformats were then constructed. For radiation dose reduction, the following was used: automated exposure control, adjustment of mA and/or kV according to patient size. COMPARISON: None. FINDINGS: Image quality: Excellent. Bones: No fractures or dislocations. Visualized superior ribs are intact. Straightening of the usual cervical lordosis , likely degenerative, with otherwi se normal alignment. Multilevel degenerative changes are present from C2-C3 through C6- C7. Soft tissues: Prevertebral soft tissues are normal in thickness. No paravertebral hematomas. No apical pneumothoraces. IMPRESSION: No CT evidence of acute traumatic cervical spine injury. Approved by: Bienvenido Jimenez M.D. on 07/31/2020 at 14:52 Labs Result Diagrams: 07/31/20 17:11 07/31/20 17:11 Labs: Laboratory Results - last 24 hr 07/31/20 07/31/20 07/31/20 17:11 17:11 17:11 WBC 12.2 H RBC 4.07 Hgb 12.5 Hct 38.0 MCV 93.2 MCH 30.7 MCHC 33.0 RDW 12.7 Plt Count 283 Neut % (Auto) 82.1 H Lymph % (Auto) 12.0 L [place] % (Auto) 5.2 Eos % (Auto) 0.5 L Baso % (Auto) 0.2 Neut # (Auto) [address] H Lymph # (Auto) 1500 [place] # (Auto) 600 Eos # (Auto) 100 Baso # (Auto) 0 PT 11.5 INR 1.0 Sodium 139 Potassium 4.1 Chloride 100 Carbon Dioxide 31 BUN 14 Creatinine 0.74 Estimated GFR > 60.0 BUN/Creatinine Ratio 18.9 Glucose 94 Calcium 9.2 Total Bilirubin 0.6 AST 38 H ALT 26 Alkaline Phosphatase 130 H Total Protein 7.8 Albumin 4.3 Globulin 3.5 Albumin/Globulin Ratio 1.2 COVID-19 PCR 09/15/20 18:47 WBC RBC Hgb Hct MCV MCH MCHC RDW Plt Count Neut % (Auto) Lymph % (Auto) [place] % (Auto) Eos % (Auto) Baso % (Auto) Neut # (Auto) Lymph # (Auto) [place] # (Auto) Eos # (Auto) Baso # (Auto) PT INR Sodium Potassium Chloride Carbon Dioxide BUN Creatinine Estimated GFR BUN/Creatinine Ratio Glucose Calcium Total Bilirubin AST ALT Alkaline Phosphatase Total Protein Albumin Globulin Albumin/Globulin Ratio COVID-19 PCR Negative Discharge Assessment & Plan Assessment and Plan Assessment: Multiple rib fractures, pulmonary contusion Plan of Treatment: Pain control, incentive spirometer, follow up with PCP or with [facility] Discharge Plan Discharge Plan Patient Disposition: Home Discharge comment: Additional recommendations: Lidocaine patches may be purchased from your local pharmacy. Use for pain as per package instructions. Ibuprofen and/or Tylenol to reduce need for narcotic pain medications. No more than 3000mg Tylenol and 2400mg Ibuprofen per day in divided doses. You may take 1000mg Tylenol every 8 hours, and 800mg Ibuprofen every 8 hours with food. Do not take Ibuprofen if it causes stomach upset or if you have history of GI bleed. Wean off of your prescription pain medication as soon as you can (weaning off within one week is recommended). You may cut the tablets in half and spread out the time between doses until you are off of it entirely. Take the stool softener (Docusate) to prevent constipation from the pain meds. If you get constipated, take an additional laxative of your choice such as Yrn alax. You may take this up to three times per day until you have a bowel movement. Follow the other written instructions given at the time of discharge. If worsening pain, shortness of breath, or other concerning symptoms arise, call your doctor or return to the ER. Make a follow up appointment to see your primary care doctor within one week of discharge. If you do not have a primary care physician, please contact [facility] and make a follow up with Dr. Ricketts. Discharge orders & Medications Prescriptions: New oxycodone 10 mg tablet 10 mg PO Q6H PRN (Reason: pain from rib fractures) Qty: 30 RF: 0 docusate sodium 100 mg capsule 100 mg PO BID Qty: 60 RF: 0 Continued buspirone 15 mg tablet 15 mg PO BID RF: 0 bupropion HCl 300 mg tablet extended release 24 hr 300 mg PO DAILY RF: 0 sertraline 100 mg tablet 150 mg PO DAILY RF: 0 levothyroxine 150 mcg PO DAILY RF: 0 multivitamin 1 tab PO DAILY RF: 0 sumatriptan succinate [Imitrex] 100 mg Tablet 100 mg PO Q2-4H PRN (Reason: Migraine Headache) RF: 0 Follow up/Referrals: Valentino Lawrence RN [Emergency Nurse] - Lisa Ricketts MD [Physician] - 1 Week (PLEASE CALL DR. RICKETTS'S OFFICE TO SCHEDULE A FOLLOW UP APPOINTMENT TO BE SEEN IN 1 WK, IF YOU ARE UNABLE TO FOLLOW UP WITH YOUR PRIMARY CARE DOCTOR.) Diet/Activity/Treatments Diet: Diet as Tolerated Activity: Activity as tolerated. Avoid being sedentary. Avoid activities that worsen your pain. Skin/Wound/Dressing Care Report to your healthcare provider any signs of infection, such as:: chills, fever, night sweats, increased pain, unusual drainage and unusual redness Visit Report/Discharge Packet Instructions: DI for Rib Fracture, DI for Prescription Opioid Use Visit Report Forms: Patient Portal/API, Stroke Signs & Symptoms Discharge Data Attending Provider: Lisa Ricketts Admit Date/Time: 07/31/20 18:50 Discharges patient from system. Discharge Date/Time: 08/01/20 11:25 Quality VTE Deep Vein Thrombosis/Pulmonary Embolism Present on Admission: No
[2020-08-01] MEDS: ENOXAPARIN 40 MG/0.4 ML SYRINGE SUBCUT (09:28)
[2020-08-01] MEDS: DOCUSATE 100 MG CAPSULE PO (09:28)
[2020-08-01] MEDS: buPROPion XL 150 MG TAB 300 MG PO (09:28)
[2020-08-01] MEDS: SERTRALINE 50 MG TABLET 150 MG PO (09:29)
[2020-08-01] MEDS: LIDOCAINE PATCH 1 EACH ADH..PATCH TOP (09:29)
[2020-08-01] MEDS: MULTIVITAMIN 1 TABLET 1 TAB PO (09:29)
[2020-08-01] MEDS: SODIUM CHLORIDE 0.9% FLUSH 10 ML IV (09:32)
[2020-08-01] MEDS: BUSPIRONE 5 MG TABLET 15 MG PO (09:33)
--- NOTE | 2020-08-01 11:23 | PC.NURSE ---
pain reports 3/10 pain at rest, 7/10 pain with movement; IV Toradol and PO oxycodone administered; ls clear; pt reminded to deep breathe;d/c instructions including f/u appt, RX medications, and deep breathing; pt d/c via wheelchair to private vehicle with personal belongings in hand
--- NOTE | 2020-08-01 14:39 | CM.DANOTE ---
DCP Assessment: EMR Reviewed: Patient is a 64 yr old female who was admitted For GLF with multiple rib fractures and uncontrolled pain. Patient was admitted under observation. CM/Rn met with patient at the bedside and explained role. Patient was alert and oriented at time of CM visit. Patient is independent with all ADLs and drives at baseline. I: [facility] medical and self pay Plan: D/C home today with spouse. no identified D/C planning needs noted at this time. Roxie Rosen RN Discharge Planning/Care Management CM Discharge Assessment Start: 08/01/20 14:26 Freq: Status: Active Protocol: Document 08/01/20 11:15 HS (Rec: 08/01/20 14:39 HS [id number]) Discharge Planning Assessment Assigned Provisioning Analyst Roxie Rosen Rn Advance Directives? No History Provided By Patient Has Patient been admitted in last 30 No days? Prior Living Arrangements House Household Members spouse Type of transporation used prior to Drives own vehicle admit Independent with ADL's Yes Is patient alert and oriented? Yes Caregiver for Another No Barriers to Discharge No Discharge Plan Home Referrals Initiated None needed Whiteboard Updated in Patient Room with Yes name and ext. # of Provisioning Analyst Review Status In Process Next Review Type Continued Stay Review
== END 2020-08-01 11:25 | disposition home or self-care (01) ==
LOC: ED 18:49 → AC 18:50
PROVIDERS: Admitting Provider Surgery; Emergency Provider Nurse Practitioner Family; Referring Provider Nurse Practitioner Family; Visit Provider Surgery
DX: S27.321A Contusion of lung, unilateral, initial encounter (principal); S22.41XA Multiple fractures of ribs, right side, initial encounter for closed fracture; W01.198A Fall on same level from slipping, tripping and stumbling with subsequent striking against other object, initial encounter; Y93.89 Activity, other specified; Y92.538 Other ambulatory health services establishments as the place of occurrence of the external cause; Y99.0 Civilian activity done for income or pay; Z11.59 Encounter for screening for other viral diseases
CPT/HCPCS: 71101; 71260; 72125; 80053; 85025; 85610; 87635; 93005; 93010; 96361; 96372; 96374; 96375; 96376; 99217; 99219; 99284; G0378; J1650; J1885; J2270; Q9967

== ENCOUNTER 2020-08-09 16:26 | Emergency (ER) | payer OTHER, SELFPAY ==
[2020-08-09] VITALS (7 sets, daily range): BP systolic 102–135; BP diastolic 57–82; PULSE 65–83; RESP 10–25; TEMP 36.8; O2SAT 96–98; BMI 26.2
--- NOTE | 2020-08-09 16:47 | ED_ITS ---
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 She was admitted to Dr. Chamorro overnight for pain control and observation. She had been doing fairly well and was weaning herself off pain medications until Thursday the . She was out walking her dog she bent over and felt a searing stabbing pain that started in the posterior axillary line right side wrapping around toward her breast. This pain has continued intermittently is somewhat positional and so mewhat pleuritic but not completely reproducible. She was seen by Dr. Chamorro in clinic on August 07 who wanted a repeat CT scan of the chest to rule out changing rib fractures, pleural effusion, chest wall hematoma or nerve entrapment. Clinic nurse was trying to get this study scheduled when patient pain continued to worsen. She presents to the ER today with continued worsening right-sided chest wall pain radiating from the posterior portion around toward the breast making it difficult to move and to breathe. She finds that the oxycodone she has available to her helps somewhat but but does not seem to be relieving the majority of symptoms and she is concerned that symptoms are now w orsening 9 days after the original injury. Related Data Home Medications Medication Instructions Recorded Confirmed bupropion HCl 300 mg PO DAILY 07/31/20 08/07/20 buspirone 15 mg PO BID 07/31/20 08/07/20 levothyroxine 150 mcg PO DAILY 07/31/20 08/07/20 multivitamin 1 tab PO DAILY 07/31/20 08/07/20 sertraline 150 mg PO DAILY 07/31/20 08/07/20 sumatriptan succinate [Imitrex] 100 mg PO Q2-4H PRN 07/31/20 08/07/20 Previous Rx's Medication Instructions Recorded docusate sodium 100 mg PO BID #60 cap 08/01/20 oxycodone 10 mg PO Q6H PRN #30 tab 08/01/20 oxycodone-acetaminophen 1 tab PO Q6H PRN #20 tab 08/09/20 Allergies Allergy/AdvReac Type Severity Reaction Status Date / Time No Known Drug Allergies Allergy Verified 08/07/20 15:52 Review of Systems Review of Systems Narrative: Pertinent positive and negative findings as per HPI Remainder of review of systems is otherwise unremarkable for Constitutional: Fevers, chills, weakness ENT: No sore throat, neck pain, ear pain Respiratory: Cough, wheeze, dyspnea GI: Nausea, vomiting, diarrhea, change in bowel habits, black or bloody stools : Dysuria, hematuria, flank pain Skin: Rashes, nonhealing lesions Neuro: Syncope, dizziness, tingling Patient History Medical History (Updated 08/09/20 @ 18:08 by Paula Smith MD) Anxiety (Acute) Breast cancer (Acute) Closed rib fracture (Acute) Depression (Acute) Hypothyroidism (Acute) Sleep apnea (Acute) Surgical History History of laminectomy (Acute) Social History household members: spouse Smoking Status: Never smoker alcohol intake: current Smoking Status: Never smoker alcohol intake frequency: 0-2 drinks per day Substance Use Type: does not use Exam Narrative Exam Narrative: General: Healthy appearing, in moderate acute distress with moving. Able to give a complete and coherent history. Well-nourished well-d eveloped HEENT: Moist mucous membranes, normal sclera with reactive pupils, Respiratory: Lungs are clear to auscultation, with overall decreased lung sounds on the right side due to splinting. No wheezing no rales no rhonchi. Full and symmetrical air movement Cardiac: Regular rate and rhythm no murmurs no bruits Abdomen: Soft nontender good bowel tones, no flank pain Skin: Warm and dry, no rashes. No abrasions contusions or rashes over the area of concern on the chest wall Neurologic: Grossly neurologically intact with no obvious asymmetries or abnormalities Extremities: No trauma, well perfused Psych: Cooperative, appropriate insight and affect Initial Vital Signs Initial Vital Signs: Vital Signs Temperature 98.3 F 08/09/20 16:46 Pulse Rate 83 08/09/20 16:46 Respiratory Rate 16 08/09/20 16:46 Blood Pressure 130/65 08/09/20 16:46 Pulse Oximetry 97 08/09/20 16:46 Course Orders Ordered: ED Orders 08/09/20 16:32 EKG-12 Lead Stat 08/09/20 16:50 Complete Blood Count AUTO DIFF Stat Comprehensive Metabolic Panel Stat Lipase Stat Partial Thromboplastin Time Stat Prothrombin Time INR Stat Troponin & CK Cardiac Panel Stat 08/09/20 17:00 CT chest w con Stat Discontinued Medications Ketorolac Tromethamine (Toradol) 15 mg IV NOW ONE Stop: 08/09/20 17:01 Last Admin: 08/09/20 17:11 Dose: 15 mg Documented by: LAURY Oxycodone/Acetaminophen (Percocet 5/325) 1 tab PO NOW ONE Stop: 08/09/20 17:01 Last Admin: 08/09/20 17:12 Dose: 1 tab Documented by: LAURY Vital Signs Vital signs: Vital Signs - 8 hr 08/09/20 16:46 08/09/20 16:49 08/09/20 17:00 Temperature 98.3 F Pulse Rate 83 80 82 Respiratory Rate 16 11 L 25 H Blood Pressure 130/65 Pulse Oximetry 97 98 97 08/09/20 17:09 08/09/20 17:26 08/09/20 17:30 Temperature Pulse Rate 68 66 71 Respiratory Rate 10 L 17 18 Blood Pressure 107/57 L 102/59 L Pulse Oximetry 96 97 98 MDM - Chest Pain Medical Records Data Attestation: I reviewed the patient's medical records. Lab Data Attestation: I reviewed the patient's lab results. Result diagrams: 08/09/20 16:50 08/09/20 16:50 Labs: Lab Results 08/09/20 08/09/20 08/09/20 Range/Units 16:50 16:50 16:50 WBC 6.3 (4.5-11.0) X10^3/uL RBC 3.91 L (4.0-5.2) X10^6/uL Hgb 12.4 (12.0-16.0) g/dL Hct 35.9 L (36-46) % MCV 91.9 (80-100) fL MCH 31.7 (26-34) PG MCHC 34.5 (30-36) % RDW 12.5 (11.6-14.8) % Plt Count 337 (150-400) X10^3/uL Neut % (Auto) 63.7 (50-75) % Lymph % (Auto) 25.4 (25-40) % [place] % (Auto) 8.1 (3-14) % Eos % (Auto) 1.9 L (2-4) % Baso % (Auto) 0.9 (0-2) % Neut # (Auto) 4000 (5234-0724) /uL Lymph # (Auto) 1600 (8702-0934) /uL [place] # (Auto) 500 (0-900) /uL Eos # (Auto) 100 (0-450) /uL Baso # (Auto) 100 (0-100) /uL PT 11.8 (10.1-12.7) SECONDS INR 1.0 (0.9-1.3) APTT 36 (26.4-36.2) SECONDS Sodium 137 (137-145) mmol/L Potassium 4.2 (3.4-5.1) mmol/L Chloride 98 (98-107) mmol/L Carbon Dioxide 30 (22-32) mmol/L BUN 15 (7-17) mg/dL Creatinine 0.75 (0.52-1.04) mg/dL Estimated GFR > 60.0 (>60) mL/min BUN/Creatinine Ratio 20.0 (6-22) Glucose 118 H (80-110) mg/dL Calcium 9.4 (8.4-10.2) mg/dL Total Bilirubin 0.5 (0.2-1.3) mg/dL AST 34 (14-36) IU/L ALT 21 (<35) IU/L Alkaline Phosphatase 124 (38-126) U/L Total Creatine Kinase 55 (30-135) U/L CK-MB (CK-2) TNP CK-MB (CK-2) Rel Index TNP Troponin I < 0.012 (0.01-0.034) ng/mL Total Protein 7.7 (6.3-8.2) g/dL Albumin 4.2 (3.5-5.0) g/dL Globulin 3.5 (1.7-4.1) g/dL Albumin/Globulin Ratio 1.2 (1.0-2.8) Lipase 340 H (23-300) U/L Imaging Data CT scan - chest: Radiologist's Impression: FINDINGS: Image quality: Excellent. Lungs and pleura: No acute air space opacities. No pleural effusions or pneumothorax. Minimal right basilar subpleural pulmonary fibrosis. Central and peripheral airways are patent and normal in caliber. Mediastinum: Heart size is normal. No pericardial effusion. No mediastinal or hilar adenopathy by size criteria. Thoracic aorta and central pulmonary arteries are normal in size. Esophagus is normal in caliber. No hiatal hernia. Bones and chest wall: Subacute to chronic right 4th, 5th, 6th, and 7th rib fractures again noted. No interval rib fractures. No suspicious bony lesions. No acute vertebral body compression fractures. Multiple old mild thoracic compressions, involving T7 and T10. No axillary or supraclavicular adenopathy by size criteria. Thyroid gland is unremarkable as visualized. Abdomen: Multiple gallstones. IMPRESSION: 1. Multiple subacute to chronic right rib fractures. 2. Old thoracic compression fractures. 3. No evidence acute pulmonary process. 4. Cholelithiasis. Dictated by: Beck Tamez M.D. on 08/09/2020 at 17:27 MDM Narrative Medical decision making narrative: 64-year-old woman with a fall at work 9 days ago multiple rib fractures. Bending and twisting earlier this week new and different type of pain was noted. Still significant rib fracture & pleuritic pain. Chest CT is unremarkable, specifically there are no new findings to ex plain her pain. No evidence of acute coronary syndrome, worsening pulmonary contusion, chest wall hematoma or developing pneumonia. Will recommend continued pain control and conservative management as her ribs continue to heal she is safe for home discharge Discharge Plan Departure Patient Disposition: Home Clinical Impression: Painful respiration Closed rib fracture Qualifiers: Encounter type: subsequent encounter Rib fracture type: multiple ribs Laterality: right Fracture healing: with routine healing Qualified Code(s): S22.41XD - Multiple fractures of ribs, right side, subsequent encounter for fracture with routine healing Fall Qualifiers: Encounter type: subsequent encounter Qualified Code(s): W19.XXXD - Unspecified fall, subsequent encounter Instructions: DI for Rib Fracture Activity Restrictions/Additional Instructions: Thank you for coming in today Your CT scan was very reassuring. Your ribs look like they are healing normally. You do not have any evidence of a heart attack or acute coronary syndrome, there is no developing pneumonia, no new chest wall or deeper hematoma, no pleural effusion and no pneumothorax. The ribs that of appear to be healing well with no new displacement. It is so frustrating to not heal as quickly as you want to. It sounds like you simply pulled a few more muscles and exacerbated the rib fractures with the bending and twisting movement earlier this week. Using 400 mg of ibuprofen (2 ehej-gve-mekogru pills) and 1 Tylenol every 6 hours can be very helpful in controlling pain. Using 400 mg of ibuprofen and 1 Percocet for severe pain is also helpful. A Percocet prescription has been electronically transmitted to [facility] for you today Please follow-up with your primary care physician I hope you heal quickly. Prescriptions: New oxycodone-acetaminophen 5-325 mg tablet 1 tab PO Q6H PRN (Reason: pain) Qty: 20 RF: 0 No Action buspirone 15 mg tablet 15 mg PO BID RF: 0 bupropion HCl 300 mg tablet extended release 24 hr 300 mg PO DAILY RF: 0 sertraline 100 mg tablet 150 mg PO DAILY RF: 0 levothyroxine 150 mcg PO DAILY RF: 0 multivitamin 1 tab PO DAILY RF: 0 sumatriptan succinate [Imitrex] 100 mg Tablet 100 mg PO Q2-4H PRN (Reason: Migraine Headache) RF: 0 oxycodone 10 mg tablet 10 mg PO Q6H PRN (Reason: pain from rib fractures) Qty: 30 RF: 0 docusate sodium 100 mg capsule 100 mg PO BID Qty: 60 RF: 0 Referrals: Tyson Morales MD [Primary Care Provider] -
[2020-08-09 17:00] LABS: Add Manual Diff / Slide Review NO; Basophils Absolute Auto 100 /uL (0-100); Basophils Percent Auto 0.9 % (0-2); Eosinophils Absolute Auto 100 /uL (0-450); Eosinophils Percent Auto 1.9 % (2-4); Hematocrit 35.9 % (36-46); Hemoglobin 12.4 g/dL (12.0-16.0); Lymphocytes Absolute Auto 1600 /uL (1100-4500); Lymphocytes Percent Auto 25.4 % (25-40); Mean Corpuscular HGB Conc 34.5 % (30-36); Mean Corpuscular Hemoglobin 31.7 PG (26-34); Mean Corpuscular Volume 91.9 fL (80-100); Monocytes Absolute Auto 500 /uL (0-900); Monocytes Percent Auto 8.1 % (3-14); Neutrophils Absolute Auto 4000 /uL (1500-7000); Neutrophils Percent Auto 63.7 % (50-75); Platelet Count 337 X10^3/uL (150-400); Red Blood Cell Count 3.91 X10^6/uL (4.0-5.2); Red Cell Distribution Width 12.5 % (11.6-14.8); White Blood Cell Count 6.3 X10^3/uL (4.5-11.0)
--- NOTE | 2020-08-09 17:00 | DI.CT.S_ITS ---
PROCEDURE: CT CHEST W CON INDICATIONS: fall, increased pain right side TECHNIQUE: After the administration of intravenous contrast, 5 mm thick sections acquired from the pulmonary apices to the posterior costophrenic angles. 1 mm axial lung, 5 mm thick coronal and sagittal reformats and 7 mm axial MIP were acquired. For radiation dose reduction, the following was used: automated exposure control, adjustment of mA and/or kV according to patient size. COMPARISON: [facility], CT, CT CHEST W CON, 07/31/2020, 17:49. FINDINGS: Image quality: Excellent. Lungs and pleura: No acute air space opacities. No pleural effusions or pneumothorax. Minimal right basilar subpleural pulmonary fibrosis. Central and peripheral airways are patent and normal in caliber. Mediastinum: Heart size is normal. No pericardial effusion. No mediastinal or hilar adenopathy by size criteria. Thoracic aorta and central pulmonary arteries are normal in size. Esophagus is normal in caliber. No hiatal hernia. Bones and chest wall: Subacute to chronic right 4th, 5th, 6th, and 7th rib fractures again noted. No interval rib fractures. No suspicious bony lesions. No acute vertebral body compression fractures. Multiple old mild thoracic compressions, involving T7 and T10. No axillary or supraclavicular adenopathy by size criteria. Thyroid gland is unremarkable as visualized. Abdomen: Multiple gallstones. IMPRESSION: 1. Multiple subacute to chronic right rib fractures. 2. Old thoracic compression fractures. 3. No evidence acute pulmonary process. 4. Cholelithiasis. Dictated by: Beck Tamez M.D. on 08/09/2020 at 17:27 Approved by: Beck Tamez M.D. on 08/09/2020 at 17:33
[2020-08-09] MEDS: KETOROLAC 60 MG/2 ML VIAL 15 MG IV (17:11)
[2020-08-09] MEDS: OXYCODONE/ACETAMINOPHEN 5/325 TABLET 1 TAB PO (17:12)
[2020-08-09 17:14] LABS: Prothrombin Time 11.8 SECONDS (10.1-12.7)
[2020-08-09 17:17] LABS: PTT Partial Thromboplastin Tim 36 SECONDS (26.4-36.2)
[2020-08-09 17:28] LABS: Alanine Aminotransferase 21 IU/L (<35); Albumin 4.2 g/dL (3.5-5.0); Albumin Globulin Ratio 1.2 (1.0-2.8); Alkaline Phosphatase 124 U/L (38-126); Aspartate Aminotransferase 34 IU/L (14-36); Bilirubin Total 0.5 mg/dL (0.2-1.3); Blood Urea Nitrogen 15 mg/dL (7-17); Calcium 9.4 mg/dL (8.4-10.2); Carbon Dioxide 30 mmol/L (22-32); Chloride 98 mmol/L (98-107); Creatine Kinase 55 U/L (30-135); Estimated Glomerular Filt Rate > 60.0 mL/min (>60); Globulin 3.5 g/dL (1.7-4.1); Glucose 118 mg/dL (80-110); HEMOLYSIS < 15 (0-50); Lipase 340 U/L (23-300); Potassium 4.2 mmol/L (3.4-5.1); Sodium 137 mmol/L (137-145); Total Protein 7.7 g/dL (6.3-8.2)
[2020-08-09 17:39] LABS: Troponin I < 0.012 ng/mL (0.01-0.034)
== END 2020-08-09 18:34 | disposition home or self-care (01) ==
PROVIDERS: Emergency Provider Emergency Medicine; PCP Internal Medicine
DX: S22.41XD Multiple fractures of ribs, right side, subsequent encounter for fracture with routine healing (principal); W19.XXXD Unspecified fall, subsequent encounter
CPT/HCPCS: 36415; 71260; 80053; 82550; 83690; 84484; 85025; 85610; 85730; 93005; 96374; 99284; J1885; Q9967

== ENCOUNTER → 2020-09-25 16:39 | Outpatient (CLI) | payer OTHER, SELFPAY | PROVIDERS: PCP Internal Medicine; Referring Provider Internal Medicine; Visit Provider Internal Medicine | DX: Z23 Encounter for immunization (principal) | CPT/HCPCS: 90471; 90662 ==

== ENCOUNTER → 2020-11-22 12:25 | Outpatient (CLI) | payer OTHER, SELFPAY ==
[2020-11-22] MEDS: COVID-19 VACC(MODERNA-1)/PF 100 MCG/0.5 ML VIAL IM (12:33)
== END ==
PROVIDERS: PCP Internal Medicine; Visit Provider Internal Medicine
DX: Z23 Encounter for immunization (principal)
CPT/HCPCS: 0011A; 91301

== ENCOUNTER → 2020-12-20 07:46 | Outpatient (CLI) | payer OTHER, SELFPAY ==
[2020-12-20] MEDS: COVID-19 VACC #2, MRNA(MOD) 100 MCG/0.5 ML VIAL IM (07:51)
== END ==
PROVIDERS: PCP Internal Medicine; Visit Provider Internal Medicine
DX: Z23 Encounter for immunization (principal)
CPT/HCPCS: 0012A; 91301

== ENCOUNTER 2021-08-26 14:30 | Outpatient (RCR) | payer OTHER, SELFPAY ==
--- NOTE | 2021-07-15 13:24 | PT.OPPOC ---
Physical, Occupational & Speech Therapy At [facility] Current Diagnoses Pain in unspecified hip (07/15/21) Low back pain (07/15/21) Pain in thoracic spine (07/15/21) Soft tissue disorder, unspecified (07/15/21) Abnormal posture (07/15/21) Visit Care Team Role Provider Type BRAULIO Chiu Attending Provider Non-Staff Primary Care Provider Referring Provider Specialty: Nursing Address: [address] [place] [address], [facility] Email: Plan Of Care PT-OP-T Assessment and Plan Start: 07/14/21 08:11 Freq: Status: Active Protocol: Document 07/15/21 16:28 SAK (Rec: 07/15/21 17:03 SAK [id number]) Physical Therapy Assessment Rehab Potential Rehabilitation Potential Good Evaluation Complexity Number of Personal Factors/Comorbidities 1-2 Number of Body Systems Impaired 3 Clinical Presentation at Evaluation Evolving Impairments Impairments Activity Tolerance,Pain, Posture,ROM,Soft Tissue Mobility,Strength Goals Three Impairment postural dysfunction and poor body mechanics Jail Goal (LTG) Patient to demonstrate good understanding and ability to self-correct posture and demonstrate good body mechanics for ADL's and usual activities. LTG Duration 09/13/21 Two Impairment decreased spinal mobility, flexibility, strength Short Term Goal (STG) Patient to be independent with therapeutic exercise program. Jail Goal (LTG) Patient will demonstrate improved spinal mobility and spine and hip flexibility and strength to WNL to allow her to do usual activities without pain. LTG Duration 09/13/21 One Impairment Pain as high as 8/10 right thoracic, bilateral hips [employer] Goal (LTG) Decrease pain to no greater than 2/10 with all usual activities, and with sleep LTG Duration 09/13/21 Assessment Summary Assessment Patient presents to PT with function-limiting pain primarily in right thoracic region with pain at times as high as 8/10. Pain appears to have been caused by fallJuly 2020, and has persisted since that time. Pain appears due to splinting, tissue shortening, postural compensation. Patient not performing any regular exercise program. She has postural dysfunction, decreased flexibility and strength throughout her trunk and hips. Would benefit from physical therapy to establish exercise program. Additionally use of manual techniques and modalities PRN to decrease pain and improve mobility, and patient education regarding bed positioning (initiated today) and body mechanics for spinal protection will be performed. Physical Therapy Plan Frequency and Duration Frequency of Treatment 1x/Week Duration of Treatment 8 weeks Plan of Care Start Date 07/15/21 Plan of Care End Date 09/13/21 Therapeutic Interventions Therapeutic Interventions Aquatic Therapy,Home Exercise Program,Joint Mobilizations, Manual Therapy,Neuromuscular Re-education,Patient/Caregiver Education,Self-Care/Home Management,Soft Tissue Mobilization,Taping, Therapeutic Activities, Therapeutic Exercises Modalities Cold Pack/Ice Massage,Electric Stimulation,Hot Packs, Infrared Therapy,Iontophoresis ,Ultrasound Next Visit Focus/Plan Next Note Type Treatment Note Next Visit Plan review HEP, progress as tolerated. Manual techniques to thoracic spine to include soft tissue mobilization and gentle joint mobilization. Moist heat. Plan of Care Dates Plan of Care Start Date 07/15/21 Plan of Care End Date 09/13/21 Electronically Signed by: Janny Brown, PT 07/17/21 [id number] Please Sign and Return: I have reviewed this Plan of Care and certify that the skilled therapy services above are required to meet the patient?s needs. Physician Signature Date Printed Name and Credentials Clinical Instructor Signature Printed Name and Credentials
--- NOTE | 2021-07-15 15:15 | PT.OIE ---
Current Diagnoses Pain in unspecified hip (07/15/21) Low back pain (07/15/21) Pain in thoracic spine (07/15/21) Soft tissue disorder, unspecified (07/15/21) Abnormal posture (07/15/21) Past Medical History (Last Updated 08/09/20 @ 17:29 by Paula Smith MD) Anxiety Breast cancer Closed rib fracture Depression History of laminectomy Hypothyroidism Sleep apnea Past Surgical History (Last Reviewed 08/07/20 @ 16:19 by Lisa Ricketts MD) History of laminectomy Visit Care Team Role Provider Type BRAULIO Chiu Attending Provider Non-Staff Primary Care Provider Referring Provider Specialty: Nursing Address: [address] [place] [address], [facility] Email: Physical Therapy Initial Evaluation PT-OP-A Visit Information Start: 07/14/21 08:11 Freq: Status: Active Protocol: Document 07/15/21 16:28 [facility] (Rec: 07/15/21 17:03 [facility] [id number]) Out-Patient Physical Therapy Visit Information Visit Information Visit Type Initial Evaluation Visit Start Time 14:34 Visit Stop Time 15:18 Total Visit Minutes 44 Visit Number 1 Evaluation Information Evaluation Date 07/15/21 Precautions Precautions history of 3 lumbar surgeries: 1980 L5/S1 lami, 1992 L4/L5 lami and microdiscectomy, L2/3 2018 lami and microdiscectomy . History right lumpectomy with chemo and radiation 1996. History right posterior rib fracture x 4 07/2020. PT-OP-B Current Condition Start: 07/14/21 08:11 Freq: Status: Active Protocol: Document 07/15/21 16:28 [facility] (Rec: 07/15/21 17:03 [facility] [id number]) Current Condition History of Current Condition Onset Date 07/31/2020 Current Complaints right sided thoracic pain History of Current Condition Patient fell and had right sided thoracic pain 07/31/20: x -ray subacute appearing right posterior lateral 5th through 8th rib fractures with adjacent right lung lower lung lobe contusion. No pneumothorax. No pleural effusion. Also reports bilateral hip pain. Has had persistent pain as well as a feeling of something going out or subluxing in her lower thoracic spine at times which is unpredictable but can be at 8/10 level. Has been unable to lay on her side to sleep which is her preferred position due to thoracic and hip pain. Works long hours, primarily sitting, not doing much for self-care due to fatigue and stress. . Had been taking walks but her dog was run over and a couple weeks ago so not doing that at this time. She reports feeling she needs guidance with activity and exercise to decrease the pain and allow her to return to all usual activities. The pain makes it difficult for her to focus at times. Pain varies from 4-8/ 10. Additional stressors are in memory care facility, and as above dog was run over and killed 2 weeks ago. Prior Treatments and Tests x-rays as above Treatment Goals Patient/Caregiver Goals Decrease her pain, learn to self manage and establish activity and exercise program. Prior Functional Status Baseline Function- ADL's Independent Baseline Function- Mobility Independent Baseline Function- Gait indep Baseline Function- Work/School no limitations Baseline Function- Recreation/Hobbies walking dog Current Functional Impairments (Reported) Functional Limitations- ADL's painful at times Functional Limitations- Mobility/Gait has not been walking for 2 weeks due to of dog Functional Limitations- Work/School difficulty focusing Functional Limitations- Recreation/ none Hobbies Personal Factors Other Personal Factors That May Effect depression, work demands, Therapy/Recovery family stressors PT-OP-H Neuro Start: 07/14/21 08:11 Freq: Status: Active Protocol: Document 07/15/21 16:28 [facility] (Rec: 07/15/21 17:03 [facility] [id number]) Sensation Evaluation Gross Sensation Gross Sensation Right LE Impaired Sensation Description Paresthesia,Pins & [place] Dermatome Impairments L1,L2 PT-OP-J Posture/Palpation/Skin Start: 07/14/21 08:11 Freq: Status: Active Protocol: Document 07/15/21 16:28 [facility] (Rec: 07/15/21 17:03 [facility] [id number]) Posture Evaluation Position Standing Head/C-Spine Posture C-Spine Flattened T-Spine Posture Flattened,Rotation Right L-Spine Posture Flattened,Rotation Right Shoulder Posture (L) Rounded,(R) Rounded Scapula Posture (R) Protracted,(L) Retracted,( L) Winged,(R) Winged Arm Posture (L) Internally Rotated,(R) Internally Rotated Pelvis Posture Neutral Weight Distribution Weight Shifted Left Hip Posture (L) Externally Rotated,(R) Externally Rotated PT-OP-K Range of Motion Start: 07/14/21 08:11 Freq: Status: Active Protocol: Document 07/15/21 16:28 [facility] (Rec: 07/15/21 17:03 [facility] [id number]) Lumbar Spine Range of Motion Lumbar Spine Active Percentage Testing Position Standing Flexion 75 Extension 75 Rotation Left 75 Rotation Right 75 Lateral Flexion Left 60 Lateral Flexion Right 60 ROM Limitations Soft Tissue Tightness,Pain Hip Goniometric Range of Motion Hip adal Flexion w/Knee Flexed 105 Straight Leg Raise 65 Internal Rotation 25 External Rotation 55 Hip ROM Limitations Hip ROM Limitations Soft Tissue Tightness PT-OP-M Strength Start: 07/14/21 08:11 Freq: Status: Active Protocol: Document 07/15/21 16:28 [facility] (Rec: 07/15/21 17:03 [facility] [id number]) Shoulder Strength Shoulder Manual Muscle Testing Left Flexion 4+ Good+ Abduction (C5) 4+ Good+ External Rotation 4- Good- Internal Rotation 4 Good Right Flexion 4 Good Abduction (C5) 4+ Good+ External Rotation 4- Good- Internal Rotation 4 Good Elbow/Forearm Strength Elbow and Forearm Manual Muscle Testing adal Flexion (C6) 5 Normal Extension (C7) 5 Normal Hip Strength Hip Manual Muscle Testing Left Flexion (L2) 4+ Good+ Abduction 4 Good External Rotation 4 Good Internal Rotation 4- Good- Right Flexion (L2) 2+ Poor+ Abduction 4 Good External Rotation 4 Good Internal Rotation 4- Good- Knee Strength Knee Manual Muscle Testing Left Flexion (S2) 5 Normal Extension (L3) 5 Normal Right Flexion (S2) 4 Good Extension (L3) 5 Normal Ankle/Foot Strength Ankle and Foot Manual Muscle Testing Left Dorsiflexion (L4) 5 Normal Plantarflexion (S1) 5 Normal Right Dorsiflexion (L4) 5 Normal Plantarflexion (S1) 5 Normal Toe Strength Toe Manual Muscle Testing Left Great Toe Extension 5 Normal Right Great Toe Extension 5 Normal PT-OP-Q Treatments Start: 07/14/21 08:11 Freq: Status: Active Protocol: Document 07/15/21 16:28 [facility] (Rec: 07/15/21 17:03 [facility] [id number]) Self-Care/Home Management Treatment Education Patient Education Home Exercise Program,Posture Other Education postural correction bed positioning PT-OP-T Assessment and Plan Start: 07/14/21 08:11 Freq: Status: Active Protocol: Document 07/15/21 16:28 [facility] (Rec: 07/15/21 17:03 [facility] [id number]) Physical Therapy Assessment Rehab Potential Rehabilitation Potential Good Evaluation Complexity Number of Personal Factors/Comorbidities 1-2 Number of Body Systems Impaired 3 Clinical Presentation at Evaluation Evolving Impairments Impairments Activity Tolerance,Pain, Posture,ROM,Soft Tissue Mobility,Strength Goals Three Impairment postural dysfunction and poor body mechanics Cupola Tapper Goal (LTG) Patient to demonstrate good understanding and ability to self-correct posture and demonstrate good body mechanics for ADL's and usual activities. LTG Duration 09/13/21 Two Impairment decreased spinal mobility, flexibility, strength Short Term Goal (STG) Patient to be independent with therapeutic exercise program. Cupola Tapper Goal (LTG) Patient will demonstrate improved spinal mobility and spine and hip flexibility and strength to WNL to allow her to do usual activities without pain. LTG Duration 09/13/21 One Impairment Pain as high as 8/10 right thoracic, bilateral hips Senior Living Goal (LTG) Decrease pain to no greater than 2/10 with all usual activities, and with sleep LTG Duration 09/13/21 Assessment Summary Assessment Patient presents to PT with function-limiting pain primarily in right thoracic region with pain at times as high as 8/10. Pain appears to have been caused by fallJuly 2020, and has persisted since that time. Pain appears due to splinting, tissue shortening, postural compensation. Patient not performing any regular exercise program. She has postural dysfunction, decreased flexibility and strength throughout her trunk and hips. Would benefit from physical therapy to establish exercise program. Additionally use of manual techniques and modalities PRN to decrease pain and improve mobility, and patient education regarding bed positioning (initiated today) and body mechanics for spinal protection will be performed. Physical Therapy Plan Frequency and Duration Frequency of Treatment 1x/Week Duration of Treatment 8 weeks Plan of Care Start Date 07/15/21 Plan of Care End Date 09/13/21 Therapeutic Interventions Therapeutic Interventions Aquatic Therapy,Home Exercise Program,Joint Mobilizations, Manual Therapy,Neuromuscular Re-education,Patient/Caregiver Education,Self-Care/Home Management,Soft Tissue Mobilization,Taping, Therapeutic Activities, Therapeutic Exercises Modalities Cold Pack/Ice Massage,Electric Stimulation,Hot Packs, Infrared Therapy,Iontophoresis ,Ultrasound Next Visit Focus/Plan Next Note Type Treatment Note Next Visit Plan review HEP, progress as tolerated. Manual techniques to thoracic spine to include soft tissue mobilization and gentle joint mobilization. Moist heat.
--- NOTE | 2021-07-29 13:18 | PT.OTN ---
Current Diagnoses Pain in unspecified hip (07/29/21) Low back pain (07/29/21) Pain in thoracic spine (07/29/21) Soft tissue disorder, unspecified (07/29/21) Abnormal posture (07/29/21) Physical Therapy Treatment Note PT-OP-A Visit Information Start: 07/14/21 08:11 Freq: Status: Active Protocol: Document 07/29/21 11:17 [facility] (Rec: 07/29/21 12:11 [facility] [id number]) Out-Patient Physical Therapy Visit Information Visit Information Visit Type Treatment Note Visit Start Time 11:17 Visit Stop Time 12:00 Total Visit Minutes 53 Visit Number 2 Evaluation Information Evaluation Date 07/15/21 Precautions Precautions history of 3 lumbar surgeries: 1980 L5/S1 lami, 1992 L4/L5 lami and microdiscectomy, L2/3 2018 lami and microdiscectomy . History right lumpectomy with chemo and radiation 1996. History right posterior rib fracture x 4 07/2020. PT-OP-B Current Condition Start: 07/14/21 08:11 Freq: Status: Active Protocol: Document 07/29/21 11:17 [facility] (Rec: 07/29/21 12:11 [facility] [id number]) Current Condition History of Current Condition Onset Date 07/31/2020 Current Complaints right sided thoracic pain History of Current Condition Patient fell and had right sided thoracic pain 07/31/20: x -ray subacute appearing right posterior lateral 5th through 8th rib fractures with adjacent right lung lower lung lobe contusion. No pneumothorax. No pleural effusion. Also reports bilateral hip pain. Has had persistent pain as well as a feeling of something going out or subluxing in her lower thoracic spine at times which is unpredictable but can be at 8/10 level. Has been unable to lay on her side to sleep which is her preferred position due to thoracic and hip pain. Works long hours, primarily sitting, not doing much for self-care due to fatigue and stress. . Had been taking walks but her dog was run over and a couple weeks ago so not doing that at this time. She reports feeling she needs guidance with activity and exercise to decrease the pain and allow her to return to all usual activities. The pain makes it difficult for her to focus at times. Pain varies from 4-8/ 10. Additional stressors are in [facility] care facility, and as above dog was run over and killed 2 weeks ago. Prior Treatments and Tests x-rays as above PT-OP-C Subjective Start: 07/14/21 08:11 Freq: Status: Active Protocol: Document 07/29/21 11:17 [facility] (Rec: 07/29/21 13:18 [facility] [id number]) OP-PT Subjective Patient Comments Patient Comments Trying to do positioning with pillows, still looking at pillow options. Busy, stressful schedule has kept her from doing HEP. PT-OP-H Neuro Start: 07/14/21 08:11 Freq: Status: Active Protocol: Document 07/15/21 16:28 [facility] (Rec: 07/15/21 17:03 [facility] [id number]) Sensation Evaluation Gross Sensation Gross Sensation Right LE Impaired Sensation Description Paresthesia,Pins & [place] Dermatome Impairments L1,L2 PT-OP-J Posture/Palpation/Skin Start: 07/14/21 08:11 Freq: Status: Active Protocol: Document 07/15/21 16:28 [facility] (Rec: 07/15/21 17:03 [facility] [id number]) Posture Evaluation Position Standing Head/C-Spine Posture C-Spine Flattened T-Spine Posture Flattened,Rotation Right L-Spine Posture Flattened,Rotation Right Shoulder Posture (L) Rounded,(R) Rounded Scapula Posture (R) Protracted,(L) Retracted,( L) Winged,(R) Winged Arm Posture (L) Internally Rotated,(R) Internally Rotated Pelvis Posture Neutral Weight Distribution Weight Shifted Left Hip Posture (L) Externally Rotated,(R) Externally Rotated PT-OP-K Range of Motion Start: 07/14/21 08:11 Freq: Status: Active Protocol: Document 07/15/21 16:28 [facility] (Rec: 07/15/21 17:03 [facility] [id number]) Lumbar Spine Range of Motion Lumbar Spine Active Percentage Testing Position Standing Flexion 75 Extension 75 Rotation Left 75 Rotation Right 75 Lateral Flexion Left 60 Lateral Flexion Right 60 ROM Limitations Soft Tissue Tightness,Pain Hip Goniometric Range of Motion Hip adal Flexion w/Knee Flexed 105 Straight Leg Raise 65 Internal Rotation 25 External Rotation 55 Hip ROM Limitations Hip ROM Limitations Soft Tissue Tightness PT-OP-M Strength Start: 07/14/21 08:11 Freq: Status: Active Protocol: Document 07/15/21 16:28 [facility] (Rec: 07/15/21 17:03 [facility] [id number]) Shoulder Strength Shoulder Manual Muscle Testing Left Flexion 4+ Good+ Abduction (C5) 4+ Good+ External Rotation 4- Good- Internal Rotation 4 Good Right Flexion 4 Good Abduction (C5) 4+ Good+ External Rotation 4- Good- Internal Rotation 4 Good Elbow/Forearm Strength Elbow and Forearm Manual Muscle Testing adal Flexion (C6) 5 Normal Extension (C7) 5 Normal Hip Strength Hip Manual Muscle Testing Left Flexion (L2) 4+ Good+ Abduction 4 Good External Rotation 4 Good Internal Rotation 4- Good- Right Flexion (L2) 2+ Poor+ Abduction 4 Good External Rotation 4 Good Internal Rotation 4- Good- Knee Strength Knee Manual Muscle Testing Left Flexion (S2) 5 Normal Extension (L3) 5 Normal Right Flexion (S2) 4 Good Extension (L3) 5 Normal Ankle/Foot Strength Ankle and Foot Manual Muscle Testing Left Dorsiflexion (L4) 5 Normal Plantarflexion (S1) 5 Normal Right Dorsiflexion (L4) 5 Normal Plantarflexion (S1) 5 Normal Toe Strength Toe Manual Muscle Testing Left Great Toe Extension 5 Normal Right Great Toe Extension 5 Normal PT-OP-Q Treatments Start: 07/14/21 08:11 Freq: Status: Active Protocol: Document 07/29/21 11:17 [facility] (Rec: 07/29/21 12:11 [facility] [id number]) Therapeutic Exercises Supine Exercises lateral rib breathing Reps/Minutes 1 min Comments verbal and tactile cues abdominal breathing Reps/Minutes 2 min Comments verbal and tactile cues arms overhead lateral trunk stretch Reps/Minutes 2x10 Comments with deep breath Sidelying Exercises open book Equipment Used 2 pillows behind back when rotating to right d/t UE pn w/ o support Reps/Minutes 5x ea Comments cues for segmental movement, deep breath to relax into stretch Other Exercises child's pose' Reps/Minutes 1x 20 Comments fwd, lateral cat/cow Reps/Minutes 5x Comments emphasis on segmental movement , incorporate breathing Manual Therapy Treatment Taping lumbar scar Treatment Focus improve mobility Type of Tape kinesiotape Skin Inspection intact Comments I strip with paper off tension Self-Care/Home Management Treatment Education Patient Education Body Mechanics,Home Exercise Program,Pain Management, Posture Other Education correct positioning at computer Activities Self-Care/Home Management Activities pillows for bed positioning log roll for back protection neutral position for sitting ( no legs crossed or bending over device. If crosses legs, make sure to alternate which leg crosses over.) PT-OP-R Modalities Start: 07/14/21 08:11 Freq: Status: Active Protocol: Document 07/29/21 11:17 [facility] (Rec: 07/29/21 13:18 [facility] [id number]) Hot Pack/Cold Pack Treatment Hot Pack Location thoracolumbar spine Patient Position Hooklying Patient Tolerance Good Comments 90/90 position PT-OP-T Assessment and Plan Start: 07/14/21 08:11 Freq: Status: Active Protocol: Document 07/29/21 11:17 [facility] (Rec: 07/29/21 12:11 [facility] [id number]) Physical Therapy Assessment Impairments Impairments Activity Tolerance,Pain, Posture,ROM,Soft Tissue Mobility,Strength Goals Three Impairment postural dysfunction and poor body mechanics Health Worker Goal (LTG) Patient to demonstrate good understanding and ability to self-correct posture and demonstrate good body mechanics for ADL's and usual activities. LTG Duration 09/13/21 Two Impairment decreased spinal mobility, flexibility, strength Short Term Goal (STG) Patient to be independent with therapeutic exercise program. Mcfp Goal (LTG) Patient will demonstrate improved spinal mobility and spine and hip flexibility and strength to WNL to allow her to do usual activities without pain. LTG Duration 09/13/21 One Impairment Pain as high as 8/10 right thoracic, bilateral hips Mcfp Goal (LTG) Decrease pain to no greater than 2/10 with all usual activities, and with sleep LTG Duration 09/13/21 Assessment Summary Assessment Patient with poor compliance to HEP, but able to verbalize and demonstrate correct postural adjustment with ribs over pelvis. Patient clarified that ribs broken 1x with fall, and 1x with coughing. Demonstrated good understanding of HEP after further review and practice with cues. PT stressed importance of deep breathing at end-range stretches, and doing exercises slowly; patient demonstrated good understanding. Moist heat to thoracolumbar spine in 90/90 position after ther ex. Physical Therapy Plan Frequency and Duration Frequency of Treatment 1x/Week Duration of Treatment 8 weeks Plan of Care Start Date 07/15/21 Plan of Care End Date 09/13/21 Therapeutic Interventions Therapeutic Interventions Aquatic Therapy,Home Exercise Program,Joint Mobilizations, Manual Therapy,Neuromuscular Re-education,Patient/Caregiver Education,Self-Care/Home Management,Soft Tissue Mobilization,Taping, Therapeutic Activities, Therapeutic Exercises Modalities Cold Pack/Ice Massage,Electric Stimulation,Hot Packs, Infrared Therapy,Iontophoresis ,Ultrasound Next Visit Focus/Plan Next Note Type Treatment Note Next Visit Plan Progress with ther ex as tolerated, possibly add row and shoulder extension with L1 TB. STM to lumbar spine surgery due to palpable thickening and lack of mobility.
--- NOTE | 2021-08-05 12:22 | PT.OTN ---
Current Diagnoses Pain in unspecified hip (08/05/21) Low back pain (08/05/21) Pain in thoracic spine (08/05/21) Soft tissue disorder, unspecified (08/05/21) Abnormal posture (08/05/21) Physical Therapy Treatment Note PT-OP-A Visit Information Start: 07/14/21 08:11 Freq: Status: Active Protocol: Document 08/05/21 11:17 [facility] (Rec: 08/05/21 12:22 [facility] [id number]) Out-Patient Physical Therapy Visit Information Visit Information Visit Type Treatment Note Visit Start Time 11:17 Visit Stop Time 12:00 Total Visit Minutes 60 Visit Number 3 Evaluation Information Evaluation Date 07/15/21 Precautions Precautions history of 3 lumbar surgeries: 1980 L5/S1 lami, 1992 L4/L5 lami and microdiscectomy, L2/3 2018 lami and microdiscectomy . History right lumpectomy with chemo and radiation 1996. History right posterior rib fracture x 4 07/2020. PT-OP-B Current Condition Start: 07/14/21 08:11 Freq: Status: Active Protocol: Document 08/05/21 11:17 [facility] (Rec: 08/05/21 12:22 [facility] [id number]) Current Condition History of Current Condition Onset Date 07/31/2020 Current Complaints right sided thoracic pain History of Current Condition Patient fell and had right sided thoracic pain 07/31/20: x -ray subacute appearing right posterior lateral 5th through 8th rib fractures with adjacent right lung lower lung lobe contusion. No pneumothorax. No pleural effusion. Also reports bilateral hip pain. Has had persistent pain as well as a feeling of something going out or subluxing in her lower thoracic spine at times which is unpredictable but can be at 8/10 level. Has been unable to lay on her side to sleep which is her preferred position due to thoracic and hip pain. Works long hours, primarily sitting, not doing much for self-care due to fatigue and stress. . Had been taking walks but her dog was run over and a couple weeks ago so not doing that at this time. She reports feeling she needs guidance with activity and exercise to decrease the pain and allow her to return to all usual activities. The pain makes it difficult for her to focus at times. Pain varies from 4-8/ 10. Additional stressors are in [facility] care facility, and as above dog was run over and killed 2 weeks ago. Prior Treatments and Tests x-rays as above PT-OP-C Subjective Start: 07/14/21 08:11 Freq: Status: Active Protocol: Document 08/05/21 11:17 [facility] (Rec: 08/05/21 12:22 [facility] [id number]) OP-PT Subjective Patient Comments Patient Comments Minimal pain, better sleep, working on deep breathing as instructed. Still not getting walks in. PT-OP-H Neuro Start: 07/14/21 08:11 Freq: Status: Active Protocol: Document 07/15/21 16:28 [facility] (Rec: 07/15/21 17:03 [facility] [id number]) Sensation Evaluation Gross Sensation Gross Sensation Right LE Impaired Sensation Description Paresthesia,Pins & [place] Dermatome Impairments L1,L2 PT-OP-J Posture/Palpation/Skin Start: 07/14/21 08:11 Freq: Status: Active Protocol: Document 07/15/21 16:28 [facility] (Rec: 07/15/21 17:03 [facility] [id number]) Posture Evaluation Position Standing Head/C-Spine Posture C-Spine Flattened T-Spine Posture Flattened,Rotation Right L-Spine Posture Flattened,Rotation Right Shoulder Posture (L) Rounded,(R) Rounded Scapula Posture (R) Protracted,(L) Retracted,( L) Winged,(R) Winged Arm Posture (L) Internally Rotated,(R) Internally Rotated Pelvis Posture Neutral Weight Distribution Weight Shifted Left Hip Posture (L) Externally Rotated,(R) Externally Rotated PT-OP-K Range of Motion Start: 07/14/21 08:11 Freq: Status: Active Protocol: Document 07/15/21 16:28 [facility] (Rec: 07/15/21 17:03 [facility] [id number]) Lumbar Spine Range of Motion Lumbar Spine Active Percentage Testing Position Standing Flexion 75 Extension 75 Rotation Left 75 Rotation Right 75 Lateral Flexion Left 60 Lateral Flexion Right 60 ROM Limitations Soft Tissue Tightness,Pain Hip Goniometric Range of Motion Hip adal Flexion w/Knee Flexed 105 Straight Leg Raise 65 Internal Rotation 25 External Rotation 55 Hip ROM Limitations Hip ROM Limitations Soft Tissue Tightness PT-OP-M Strength Start: 07/14/21 08:11 Freq: Status: Active Protocol: Document 07/15/21 16:28 [facility] (Rec: 07/15/21 17:03 [facility] [id number]) Shoulder Strength Shoulder Manual Muscle Testing Left Flexion 4+ Good+ Abduction (C5) 4+ Good+ External Rotation 4- Good- Internal Rotation 4 Good Right Flexion 4 Good Abduction (C5) 4+ Good+ External Rotation 4- Good- Internal Rotation 4 Good Elbow/Forearm Strength Elbow and Forearm Manual Muscle Testing adal Flexion (C6) 5 Normal Extension (C7) 5 Normal Hip Strength Hip Manual Muscle Testing Left Flexion (L2) 4+ Good+ Abduction 4 Good External Rotation 4 Good Internal Rotation 4- Good- Right Flexion (L2) 2+ Poor+ Abduction 4 Good External Rotation 4 Good Internal Rotation 4- Good- Knee Strength Knee Manual Muscle Testing Left Flexion (S2) 5 Normal Extension (L3) 5 Normal Right Flexion (S2) 4 Good Extension (L3) 5 Normal Ankle/Foot Strength Ankle and Foot Manual Muscle Testing Left Dorsiflexion (L4) 5 Normal Plantarflexion (S1) 5 Normal Right Dorsiflexion (L4) 5 Normal Plantarflexion (S1) 5 Normal Toe Strength Toe Manual Muscle Testing Left Great Toe Extension 5 Normal Right Great Toe Extension 5 Normal PT-OP-Q Treatments Start: 07/14/21 08:11 Freq: Status: Active Protocol: Document 08/05/21 11:17 [facility] (Rec: 08/05/21 12:22 [facility] [id number]) Cardio Equipment Recumbent Elliptical ([employer] Duration (Minutes) 8 Resistance 2 Seat Position 10 Therapeutic Exercises Supine Exercises calf stretch Equipment Used strap Reps/Minutes 30x2 hamstring stretch Equipment Used strap Reps/Minutes 30x2 Sidelying Exercises open book Reps/Minutes 5x ea Comments cues for segmental movement, deep breath to relax into stretch Standing Exercises row, shoulder ext Equipment Used L1 TB Reps/Minutes 10x Other Exercises child's pose' Reps/Minutes 1x 20 Comments fwd, lateral cat/cow Reps/Minutes 5x Comments emphasis on segmental movement , incorporate breathing Manual Therapy Treatment Taping lumbar scar Treatment Focus improve mobility Type of Tape kinesiotape Skin Inspection intact Comments I strip with paper off tension Self-Care/Home Management Treatment Education Patient Education Body Mechanics,Home Exercise Program,Pain Management, Posture Other Education updated written HEP PT-OP-R Modalities Start: 07/14/21 08:11 Freq: Status: Active Protocol: Document 08/05/21 11:17 [facility] (Rec: 08/05/21 12:22 [facility] [id number]) Hot Pack/Cold Pack Treatment Hot Pack Location thoracolumbar spine Patient Position Hooklying Patient Tolerance Good Comments 90/90 position PT-OP-T Assessment and Plan Start: 07/14/21 08:11 Freq: Status: Active Protocol: Document 08/05/21 11:17 [facility] (Rec: 08/05/21 12:22 [facility] [id number]) Physical Therapy Assessment Impairments Impairments Activity Tolerance,Pain, Posture,ROM,Soft Tissue Mobility,Strength Goals Three Impairment postural dysfunction and poor body mechanics Turning Lathe Tender Goal (LTG) Patient to demonstrate good understanding and ability to self-correct posture and demonstrate good body mechanics for ADL's and usual activities. LTG Duration 09/13/21 Two Impairment decreased spinal mobility, flexibility, strength Short Term Goal (STG) Patient to be independent with therapeutic exercise program. Fpc Goal (LTG) Patient will demonstrate improved spinal mobility and spine and hip flexibility and strength to WNL to allow her to do usual activities without pain. LTG Duration 09/13/21 One Impairment Pain as high as 8/10 right thoracic, bilateral hips Fpc Goal (LTG) Decrease pain to no greater than 2/10 with all usual activities, and with sleep LTG Duration 09/13/21 Assessment Summary Assessment improving kinesthetic awareness and thoracic mobility noted. Good tolerance for addition of row and shoulder extension with theraband, and supine hamstring and calf stretch with band. HEP updated. Physical Therapy Plan Frequency and Duration Frequency of Treatment 1x/Week Duration of Treatment 8 weeks Plan of Care Start Date 07/15/21 Plan of Care End Date 09/13/21 Therapeutic Interventions Therapeutic Interventions Aquatic Therapy,Home Exercise Program,Joint Mobilizations, Manual Therapy,Neuromuscular Re-education,Patient/Caregiver Education,Self-Care/Home Management,Soft Tissue Mobilization,Taping, Therapeutic Activities, Therapeutic Exercises Modalities Cold Pack/Ice Massage,Electric Stimulation,Hot Packs, Infrared Therapy,Iontophoresis ,Ultrasound Next Visit Focus/Plan Next Note Type Treatment Note Next Visit Plan STM to lumbar spine surgery due to palpable thickening and lack of mobility. Continue progression of ther ex as tolerated for spinal mobility, postural correction, core stab.
--- NOTE | 2021-08-12 11:36 | PT.OTN ---
Current Diagnoses Pain in unspecified hip (08/12/21) Low back pain (08/12/21) Pain in thoracic spine (08/12/21) Soft tissue disorder, unspecified (08/12/21) Abnormal posture (08/12/21) Physical Therapy Treatment Note PT-OP-A Visit Information Start: 07/14/21 08:11 Freq: Status: Active Protocol: Document 08/12/21 09:47 [facility] (Rec: 08/12/21 10:36 [facility] [id number]) Out-Patient Physical Therapy Visit Information Visit Information Visit Type Treatment Note Visit Start Time 09:47 Visit Stop Time 10:45 Total Visit Minutes 58 Visit Number 4 Precautions Precautions history of 3 lumbar surgeries: 1980 L5/S1 lami, 1992 L4/L5 lami and microdiscectomy, L2/3 2018 lami and microdiscectomy . History right lumpectomy with chemo and radiation 1996. History right posterior rib fracture x 4 07/2020. PT-OP-B Current Condition Start: 07/14/21 08:11 Freq: Status: Active Protocol: Document 08/12/21 09:47 [facility] (Rec: 08/12/21 10:36 [facility] [id number]) Current Condition History of Current Condition Onset Date 07/31/2020 Current Complaints right sided thoracic pain History of Current Condition Patient fell and had right sided thoracic pain 07/31/20: x -ray subacute appearing right posterior lateral 5th through 8th rib fractures with adjacent right lung lower lung lobe contusion. No pneumothorax. No pleural effusion. Also reports bilateral hip pain. Has had persistent pain as well as a feeling of something going out or subluxing in her lower thoracic spine at times which is unpredictable but can be at 8/10 level. Has been unable to lay on her side to sleep which is her preferred position due to thoracic and hip pain. Works long hours, primarily sitting, not doing much for self-care due to fatigue and stress. . Had been taking walks but her dog was run over and a couple weeks ago so not doing that at this time. She reports feeling she needs guidance with activity and exercise to decrease the pain and allow her to return to all usual activities. The pain makes it difficult for her to focus at times. Pain varies from 4-8/ 10. Additional stressors are in [facility] care facility, and as above dog was run over and killed 2 weeks ago. Prior Treatments and Tests x-rays as above PT-OP-C Subjective Start: 07/14/21 08:11 Freq: Status: Active Protocol: Document 08/12/21 09:47 [facility] (Rec: 08/12/21 10:36 [facility] [id number]) OP-PT Subjective Patient Comments Patient Comments Those bands kicked my butt, having pain low back and buttocks, stopped doing those exercises. Not sleeping well , stressed at work. Stress level 8/10. PT-OP-H Neuro Start: 07/14/21 08:11 Freq: Status: Active Protocol: Document 07/15/21 16:28 [facility] (Rec: 07/15/21 17:03 [facility] [id number]) Sensation Evaluation Gross Sensation Gross Sensation Right LE Impaired Sensation Description Paresthesia,Pins & [place] Dermatome Impairments L1,L2 PT-OP-J Posture/Palpation/Skin Start: 07/14/21 08:11 Freq: Status: Active Protocol: Document 07/15/21 16:28 [facility] (Rec: 07/15/21 17:03 [facility] [id number]) Posture Evaluation Position Standing Head/C-Spine Posture C-Spine Flattened T-Spine Posture Flattened,Rotation Right L-Spine Posture Flattened,Rotation Right Shoulder Posture (L) Rounded,(R) Rounded Scapula Posture (R) Protracted,(L) Retracted,( L) Winged,(R) Winged Arm Posture (L) Internally Rotated,(R) Internally Rotated Pelvis Posture Neutral Weight Distribution Weight Shifted Left Hip Posture (L) Externally Rotated,(R) Externally Rotated PT-OP-K Range of Motion Start: 07/14/21 08:11 Freq: Status: Active Protocol: Document 07/15/21 16:28 [facility] (Rec: 07/15/21 17:03 [facility] [id number]) Lumbar Spine Range of Motion Lumbar Spine Active Percentage Testing Position Standing Flexion 75 Extension 75 Rotation Left 75 Rotation Right 75 Lateral Flexion Left 60 Lateral Flexion Right 60 ROM Limitations Soft Tissue Tightness,Pain Hip Goniometric Range of Motion Hip adal Flexion w/Knee Flexed 105 Straight Leg Raise 65 Internal Rotation 25 External Rotation 55 Hip ROM Limitations Hip ROM Limitations Soft Tissue Tightness PT-OP-M Strength Start: 07/14/21 08:11 Freq: Status: Active Protocol: Document 07/15/21 16:28 [facility] (Rec: 07/15/21 17:03 [facility] [id number]) Shoulder Strength Shoulder Manual Muscle Testing Left Flexion 4+ Good+ Abduction (C5) 4+ Good+ External Rotation 4- Good- Internal Rotation 4 Good Right Flexion 4 Good Abduction (C5) 4+ Good+ External Rotation 4- Good- Internal Rotation 4 Good Elbow/Forearm Strength Elbow and Forearm Manual Muscle Testing adal Flexion (C6) 5 Normal Extension (C7) 5 Normal Hip Strength Hip Manual Muscle Testing Left Flexion (L2) 4+ Good+ Abduction 4 Good External Rotation 4 Good Internal Rotation 4- Good- Right Flexion (L2) 2+ Poor+ Abduction 4 Good External Rotation 4 Good Internal Rotation 4- Good- Knee Strength Knee Manual Muscle Testing Left Flexion (S2) 5 Normal Extension (L3) 5 Normal Right Flexion (S2) 4 Good Extension (L3) 5 Normal Ankle/Foot Strength Ankle and Foot Manual Muscle Testing Left Dorsiflexion (L4) 5 Normal Plantarflexion (S1) 5 Normal Right Dorsiflexion (L4) 5 Normal Plantarflexion (S1) 5 Normal Toe Strength Toe Manual Muscle Testing Left Great Toe Extension 5 Normal Right Great Toe Extension 5 Normal PT-OP-Q Treatments Start: 07/14/21 08:11 Freq: Status: Active Protocol: Document 08/12/21 09:47 [facility] (Rec: 08/12/21 10:36 [facility] [id number]) Cardio Equipment Recumbent Elliptical ([employer]) Duration (Minutes) 9 Resistance 2 Seat Position 10 Therapeutic Exercises Supine Exercises TrA with heelslide Reps/Minutes 6x ea Comments incoroporating breathing with cues TrA with ball squeeze Reps/Minutes 5x TrA Reps/Minutes 5x Comments with exhale calf stretch Equipment Used strap Reps/Minutes 30x2 hamstring stretch Reps/Minutes 30x2 Comments manual abdominal breathing Reps/Minutes 2 min Comments verbal and tactile cues Standing Exercises row, shoulder ext Equipment Used L1 TB Reps/Minutes 5x Comments at wall wilth wall posture Manual Therapy Treatment Soft Tissue Mobilization bilateral lumbar paraspinals Body Location adal lumbar paraspinals Mobilization Type Myofascial Release Intensity/Depth Moderate Body Position Sidelying Taping lumbar scar Comments not done due to time constraints Self-Care/Home Management Treatment Education Patient Education Body Mechanics,Posture Other Education stress management techniques PT-OP-R Modalities Start: 07/14/21 08:11 Freq: Status: Active Protocol: Document 08/12/21 09:47 [facility] (Rec: 08/12/21 10:36 [facility] [id number]) Hot Pack/Cold Pack Treatment Hot Pack Location thoracolumbar spine Patient Position Hooklying Patient Tolerance Good Comments 90/90 position PT-OP-T Assessment and Plan Start: 07/14/21 08:11 Freq: Status: Active Protocol: Document 08/12/21 09:47 [facility] (Rec: 08/12/21 10:36 [facility] [id number]) Physical Therapy Assessment Impairments Impairments Activity Tolerance,Pain, Posture,ROM,Soft Tissue Mobility,Strength Goals Three Impairment postural dysfunction and poor body mechanics Rim Technician Goal (LTG) Patient to demonstrate good understanding and ability to self-correct posture and demonstrate good body mechanics for ADL's and usual activities. LTG Duration 09/13/21 Two Impairment decreased spinal mobility, flexibility, strength Short Term Goal (STG) Patient to be independent with therapeutic exercise program. Rim Technician Goal (LTG) Patient will demonstrate improved spinal mobility and spine and hip flexibility and strength to WNL to allow her to do usual activities without pain. LTG Duration 09/13/21 One Impairment Pain as high as 8/10 right thoracic, bilateral hips Rim Technician Goal (LTG) Decrease pain to no greater than 2/10 with all usual activities, and with sleep LTG Duration 09/13/21 Assessment Summary Assessment Pain exacerbated after last PT session, possibly postural alignment with bands, trial at wall today after wall posture ex, emphasis on using wall for postural cues during band exercises. Well-tolerated but reports pain didn't come on until later. Palpable muscle tightness bilateral lumbar paraspinals left greater than right. Decreased with manual techniques. Physical Therapy Plan Frequency and Duration Frequency of Treatment 1x/Week Duration of Treatment 8 weeks Plan of Care Start Date 07/15/21 Plan of Care End Date 09/13/21 Therapeutic Interventions Therapeutic Interventions Aquatic Therapy,Home Exercise Program,Joint Mobilizations, Manual Therapy,Neuromuscular Re-education,Patient/Caregiver Education,Self-Care/Home Management,Soft Tissue Mobilization,Taping, Therapeutic Activities, Therapeutic Exercises Modalities Cold Pack/Ice Massage,Electric Stimulation,Hot Packs, Infrared Therapy,Iontophoresis ,Ultrasound Next Visit Focus/Plan Next Note Type Treatment Note Next Visit Plan Increased emphasis on manual techniques pending tolerance for last treatment. Leave time for kinesiotape.
--- NOTE | 2021-08-19 09:58 | PT-OP ANOTE ---
cancelled due to back pain; wants to stay home and do heat, positional traction, and gentle stretching
--- NOTE | 2021-08-26 13:27 | PT.OTN ---
Current Diagnoses Pain in unspecified hip (08/26/21) Low back pain (08/26/21) Pain in thoracic spine (08/26/21) Soft tissue disorder, unspecified (08/26/21) Abnormal posture (08/26/21) Physical Therapy Treatment Note PT-OP-A Visit Information Start: 07/14/21 08:11 Freq: Status: Active Protocol: Document 08/26/21 14:35 SAK (Rec: 08/26/21 15:17 [facility] [id number]) Out-Patient Physical Therapy Visit Information Visit Information Visit Type Treatment Note Visit Start Time 14:35 Visit Stop Time 15:30 Total Visit Minutes 55 Visit Number 5 Precautions Precautions history of 3 lumbar surgeries: 1980 L5/S1 lami, 1992 L4/L5 lami and microdiscectomy, L2/3 2018 lami and microdiscectomy . History right lumpectomy with chemo and radiation 1996. History right posterior rib fracture x 4 07/2020. PT-OP-B Current Condition Start: 07/14/21 08:11 Freq: Status: Active Protocol: Document 08/12/21 09:47 [facility] (Rec: 08/12/21 10:36 [facility] [id number]) Current Condition History of Current Condition Onset Date 07/31/2020 Current Complaints right sided thoracic pain History of Current Condition Patient fell and had right sided thoracic pain 07/31/20: x -ray subacute appearing right posterior lateral 5th through 8th rib fractures with adjacent right lung lower lung lobe contusion. No pneumothorax. No pleural effusion. Also reports bilateral hip pain. Has had persistent pain as well as a feeling of something going out or subluxing in her lower thoracic spine at times which is unpredictable but can be at 8/10 level. Has been unable to lay on her side to sleep which is her preferred position due to thoracic and hip pain. Works long hours, primarily sitting, not doing much for self-care due to fatigue and stress. . Had been taking walks but her dog was run over and a couple weeks ago so not doing that at this time. She reports feeling she needs guidance with activity and exercise to decrease the pain and allow her to return to all usual activities. The pain makes it difficult for her to focus at times. Pain varies from 4-8/ 10. Additional stressors are in [facility] care facility, and as above dog was run over and killed 2 weeks ago. Prior Treatments and Tests x-rays as above PT-OP-C Subjective Start: 07/14/21 08:11 Freq: Status: Active Protocol: Document 08/26/21 14:35 SAK (Rec: 08/26/21 15:17 SAK [id number]) OP-PT Subjective Patient Comments Patient Comments Stiff especially in am, feels like I've had a fusion. Obtained a body pillow which she likes. Pain just gradually got better. Watching her posture in her office. PT-OP-H Neuro Start: 07/14/21 08:11 Freq: Status: Active Protocol: Document 07/15/21 16:28 SAK (Rec: 07/15/21 17:03 [facility] [id number]) Sensation Evaluation Gross Sensation Gross Sensation Right LE Impaired Sensation Description Paresthesia,Pins & [place] Dermatome Impairments L1,L2 PT-OP-J Posture/Palpation/Skin Start: 07/14/21 08:11 Freq: Status: Active Protocol: Document 07/15/21 16:28 SAK (Rec: 07/15/21 17:03 [facility] [id number]) Posture Evaluation Position Standing Head/C-Spine Posture C-Spine Flattened T-Spine Posture Flattened,Rotation Right L-Spine Posture Flattened,Rotation Right Shoulder Posture (L) Rounded,(R) Rounded Scapula Posture (R) Protracted,(L) Retracted,( L) Winged,(R) Winged Arm Posture (L) Internally Rotated,(R) Internally Rotated Pelvis Posture Neutral Weight Distribution Weight Shifted Left Hip Posture (L) Externally Rotated,(R) Externally Rotated PT-OP-K Range of Motion Start: 07/14/21 08:11 Freq: Status: Active Protocol: Document 07/15/21 16:28 SAK (Rec: 07/15/21 17:03 [facility] [id number]) Lumbar Spine Range of Motion Lumbar Spine Active Percentage Testing Position Standing Flexion 75 Extension 75 Rotation Left 75 Rotation Right 75 Lateral Flexion Left 60 Lateral Flexion Right 60 ROM Limitations Soft Tissue Tightness,Pain Hip Goniometric Range of Motion Hip adal Flexion w/Knee Flexed 105 Straight Leg Raise 65 Internal Rotation 25 External Rotation 55 Hip ROM Limitations Hip ROM Limitations Soft Tissue Tightness PT-OP-M Strength Start: 07/14/21 08:11 Freq: Status: Active Protocol: Document 07/15/21 16:28 SAK (Rec: 07/15/21 17:03 [facility] [id number]) Shoulder Strength Shoulder Manual Muscle Testing Left Flexion 4+ Good+ Abduction (C5) 4+ Good+ External Rotation 4- Good- Internal Rotation 4 Good Right Flexion 4 Good Abduction (C5) 4+ Good+ External Rotation 4- Good- Internal Rotation 4 Good Elbow/Forearm Strength Elbow and Forearm Manual Muscle Testing adal Flexion (C6) 5 Normal Extension (C7) 5 Normal Hip Strength Hip Manual Muscle Testing Left Flexion (L2) 4+ Good+ Abduction 4 Good External Rotation 4 Good Internal Rotation 4- Good- Right Flexion (L2) 2+ Poor+ Abduction 4 Good External Rotation 4 Good Internal Rotation 4- Good- Knee Strength Knee Manual Muscle Testing Left Flexion (S2) 5 Normal Extension (L3) 5 Normal Right Flexion (S2) 4 Good Extension (L3) 5 Normal Ankle/Foot Strength Ankle and Foot Manual Muscle Testing Left Dorsiflexion (L4) 5 Normal Plantarflexion (S1) 5 Normal Right Dorsiflexion (L4) 5 Normal Plantarflexion (S1) 5 Normal Toe Strength Toe Manual Muscle Testing Left Great Toe Extension 5 Normal Right Great Toe Extension 5 Normal PT-OP-Q Treatments Start: 07/14/21 08:11 Freq: Status: Active Protocol: Document 08/26/21 14:35 [facility] (Rec: 08/26/21 15:17 [facility] [id number]) Cardio Equipment Recumbent Stepper (Sci-Fit) Duration (Minutes) 10 Resistance 1.5 Seat Position 12 Therapeutic Exercises Supine Exercises SKTC Reps/Minutes 1x30 segmental bridge Reps/Minutes 10x Sitting Exercises figure 4 stretch Reps/Minutes 2x row, shld ext Equipment Used L1 TB Reps/Minutes 10x Standing Exercises row, shoulder ext Comments instructed to do seated Other Exercises bird dog Comments verbal instruction cat/cow Reps/Minutes 5x Comments emphasis on segmental movement , incorporate breathing Manual Therapy Treatment Soft Tissue Mobilization bilateral lumbar paraspinals Body Location adal lumbar paraspinals Mobilization Type Myofascial Release Intensity/Depth Moderate Body Position Sidelying Self-Care/Home Management Treatment Education Patient Education Body Mechanics,Posture Other Education stress management techniques PT-OP-R Modalities Start: 07/14/21 08:11 Freq: Status: Active Protocol: Document 08/26/21 10:35 [facility] (Rec: 08/27/21 13:27 [facility] [id number]) Hot Pack/Cold Pack Treatment Hot Pack Location thoracolumbar spine Patient Position Hooklying Patient Tolerance Good Comments 90/90 position PT-OP-T Assessment and Plan Start: 07/14/21 08:11 Freq: Status: Active Protocol: Document 08/26/21 14:35 [facility] (Rec: 08/26/21 15:17 [facility] [id number]) Physical Therapy Assessment Goals Three Impairment postural dysfunction and poor body mechanics Production Quality Analyst Goal (LTG) Patient to demonstrate good understanding and ability to self-correct posture and demonstrate good body mechanics for ADL's and usual activities. LTG Duration 09/13/21 Two Impairment decreased spinal mobility, flexibility, strength Short Term Goal (STG) Patient to be independent with therapeutic exercise program. Mcc Goal (LTG) Patient will demonstrate improved spinal mobility and spine and hip flexibility and strength to WNL to allow her to do usual activities without pain. LTG Duration 09/13/21 One Impairment Pain as high as 8/10 right thoracic, bilateral hips Mcc Goal (LTG) Decrease pain to no greater than 2/10 with all usual activities, and with sleep LTG Duration 09/13/21 Assessment Summary Assessment Patient pain much improved, modified theraband exercises and other HEP. Patient agreeable to trial aquatic PT after 1 further land-based PT session to assure comfort with HEP and modify/progress further as indicated. Updated written HEP issued to patient . Physical Therapy Plan Frequency and Duration Frequency of Treatment 1x/Week Duration of Treatment 8 weeks Plan of Care Start Date 07/15/21 Plan of Care End Date 09/13/21 Therapeutic Interventions Therapeutic Interventions Aquatic Therapy,Home Exercise Program,Joint Mobilizations, Manual Therapy,Neuromuscular Re-education,Patient/Caregiver Education,Self-Care/Home Management,Soft Tissue Mobilization,Taping, Therapeutic Activities, Therapeutic Exercises Modalities Cold Pack/Ice Massage,Electric Stimulation,Hot Packs, Infrared Therapy,Iontophoresis ,Ultrasound Next Visit Focus/Plan Next Note Type Treatment Note Next Visit Plan 1 more land-based treatment, then transition to aquatic PT for at least 2 visits to instruct in independent aquatic exercise program for senior care fitness and pain management.
--- NOTE | 2022-01-20 09:46 | PT.OPDS ---
Current Diagnoses Pain in unspecified hip (08/26/21) Low back pain (08/26/21) Pain in thoracic spine (08/26/21) Soft tissue disorder, unspecified (08/26/21) Abnormal posture (08/26/21) Visit Care Team Role Provider Type BRAULIO Chiu Attending Provider Non-Staff Primary Care Provider Referring Provider Specialty: Nursing Address: [address] [place] [address], [facility] Email: Visit Number Visit Number 5 Discharge Summary PT-OP-B Current Condition Start: 07/14/21 08:11 Freq: Status: Active Protocol: Document 08/12/21 09:47 SAK (Rec: 08/12/21 10:36 SAK [id number]) Current Condition History of Current Condition Onset Date 07/31/2020 Current Complaints right sided thoracic pain History of Current Condition Patient fell and had right sided thoracic pain 07/31/20: x -ray subacute appearing right posterior lateral 5th through 8th rib fractures with adjacent right lung lower lung lobe contusion. No pneumothorax. No pleural effusion. Also reports bilateral hip pain. Has had persistent pain as well as a feeling of something going out or subluxing in her lower thoracic spine at times which is unpredictable but can be at 8/10 level. Has been unable to lay on her side to sleep which is her preferred position due to thoracic and hip pain. Works long hours, primarily sitting, not doing much for self-care due to fatigue and stress. . Had been taking walks but her dog was run over and a couple weeks ago so not doing that at this time. She reports feeling she needs guidance with activity and exercise to decrease the pain and allow her to return to all usual activities. The pain makes it difficult for her to focus at times. Pain varies from 4-8/ 10. Additional stressors are in memory care facility, and as above dog was run over and killed 2 weeks ago. Prior Treatments and Tests x-rays as above PT-OP-C Subjective Start: 07/14/21 08:11 Freq: Status: Active Protocol: Document 08/26/21 14:35 SAK (Rec: 08/26/21 15:17 SAK [id number]) OP-PT Subjective Patient Comments Patient Comments Stiff especially in am, feels like I've had a fusion. Obtained a body pillow which she likes. Pain just gradually got better. Watching her posture in her office. PT-OP-H Neuro Start: 07/14/21 08:11 Freq: Status: Active Protocol: Document 07/15/21 16:28 [facility] (Rec: 07/15/21 17:03 [facility] [id number]) Sensation Evaluation Gross Sensation Gross Sensation Right LE Impaired Sensation Description Paresthesia,Pins & [place] Dermatome Impairments L1,L2 PT-OP-J Posture/Palpation/Skin Start: 07/14/21 08:11 Freq: Status: Active Protocol: Document 07/15/21 16:28 SAK (Rec: 07/15/21 17:03 [facility] [id number]) Posture Evaluation Position Standing Head/C-Spine Posture C-Spine Flattened T-Spine Posture Flattened,Rotation Right L-Spine Posture Flattened,Rotation Right Shoulder Posture (L) Rounded,(R) Rounded Scapula Posture (R) Protracted,(L) Retracted,( L) Winged,(R) Winged Arm Posture (L) Internally Rotated,(R) Internally Rotated Pelvis Posture Neutral Weight Distribution Weight Shifted Left Hip Posture (L) Externally Rotated,(R) Externally Rotated PT-OP-K Range of Motion Start: 07/14/21 08:11 Freq: Status: Active Protocol: Document 07/15/21 16:28 [facility] (Rec: 07/15/21 17:03 [facility] [id number]) Lumbar Spine Range of Motion Lumbar Spine Active Percentage Testing Position Standing Flexion 75 Extension 75 Rotation Left 75 Rotation Right 75 Lateral Flexion Left 60 Lateral Flexion Right 60 ROM Limitations Soft Tissue Tightness,Pain Hip Goniometric Range of Motion Hip adal Flexion w/Knee Flexed 105 Straight Leg Raise 65 Internal Rotation 25 External Rotation 55 Hip ROM Limitations Hip ROM Limitations Soft Tissue Tightness PT-OP-M Strength Start: 07/14/21 08:11 Freq: Status: Active Protocol: Document 07/15/21 16:28 [facility] (Rec: 07/15/21 17:03 [facility] [id number]) Shoulder Strength Shoulder Manual Muscle Testing Left Flexion 4+ Good+ Abduction (C5) 4+ Good+ External Rotation 4- Good- Internal Rotation 4 Good Right Flexion 4 Good Abduction (C5) 4+ Good+ External Rotation 4- Good- Internal Rotation 4 Good Elbow/Forearm Strength Elbow and Forearm Manual Muscle Testing adal Flexion (C6) 5 Normal Extension (C7) 5 Normal Hip Strength Hip Manual Muscle Testing Left Flexion (L2) 4+ Good+ Abduction 4 Good External Rotation 4 Good Internal Rotation 4- Good- Right Flexion (L2) 2+ Poor+ Abduction 4 Good External Rotation 4 Good Internal Rotation 4- Good- Knee Strength Knee Manual Muscle Testing Left Flexion (S2) 5 Normal Extension (L3) 5 Normal Right Flexion (S2) 4 Good Extension (L3) 5 Normal Ankle/Foot Strength Ankle and Foot Manual Muscle Testing Left Dorsiflexion (L4) 5 Normal Plantarflexion (S1) 5 Normal Right Dorsiflexion (L4) 5 Normal Plantarflexion (S1) 5 Normal Toe Strength Toe Manual Muscle Testing Left Great Toe Extension 5 Normal Right Great Toe Extension 5 Normal PT-OP-T Assessment and Plan Start: 07/14/21 08:11 Freq: Status: Active Protocol: Document 01/20/22 09:41 [facility] (Rec: 01/20/22 09:43 [facility] [id number]) Physical Therapy Plan Discharge Physical Therapy Discharge Reasons No Longer Attending PT Discharge Comments Patient may benefit from further PT in the future.
== END 2022-01-22 14:15 ==
LOC: PHYS 14:30
PROVIDERS: PCP Nurse Practitioner; Referring Provider Nurse Practitioner; Visit Provider Nurse Practitioner
DX: M54.6 Pain in thoracic spine (principal); M25.559 Pain in unspecified hip; R29.3 Abnormal posture; M79.9 Soft tissue disorder, unspecified
CPT/HCPCS: 97110; 97140; 97162; 97535

== ENCOUNTER → 2021-10-08 06:48 | Outpatient (CLI) | payer OTHER, SELFPAY | PROVIDERS: PCP Nurse Practitioner; Referring Provider Internal Medicine; Visit Provider Internal Medicine | DX: Z23 Encounter for immunization (principal) | CPT/HCPCS: 90471; 90686 ==